=== PATIENT | female | born 1975 | race Caucasian/White ===

== ENCOUNTER 2017-12-17 05:56 | Inpatient (IN) | payer MEDICAID ==
[~2017-12-17 05:56] MED LIST: Ropivacaine 58 ML, Dexamethasone 8 MG, EPINEPHrine 0.4 MG, Sodium Chloride 0.9% 19.6 ML NERVRT SCH
[2017-12-17] MEDS ORDERED: Celecoxib 200 MG Cap PO ONE (06:00)
[2017-12-17] MEDS ORDERED: Acetaminophen 500 MG Tab PO ONE (06:00)
[2017-12-17] MEDS ORDERED: Gabapentin 300 MG Cap PO ONE (06:00)
[2017-12-17] MEDS ORDERED: Scopolamine 1.5 MG Transdermal Patch TOP SCH (06:05)
[2017-12-17] MEDS ORDERED: Albuterol/Ipratropium 3.0-0.5 MG/3 ML Neb Soln NEB ONE (06:30)
[2017-12-17] MEDS ORDERED: Dextrose 5%-Lactated Ringers 1,000 ML IV SCH (06:30)
[2017-12-17] MEDS ORDERED: cefOXitin 2 GM Vial ONE (06:40)
[2017-12-17] MEDS ORDERED: fentaNYL 250 MCG/5 ML SDV ONE ×4 (06:59→09:41)
[2017-12-17] MEDS ORDERED: Lactated Ringers 1,000 ML ONE (06:59)
[2017-12-17] MEDS ORDERED: Propofol 200 MG/20 ML SDV ONE (07:00)
[2017-12-17] MEDS ORDERED: Rocuronium 50 MG/5 ML Vial ONE (07:00)
[2017-12-17] MEDS ORDERED: Neostigmine Methylsulfate 1 MG/ML 5 ML Syringe ONE (07:00)
[2017-12-17] MEDS ORDERED: Dexamethasone 4 MG/ML SDV ONE (07:00)
[2017-12-17] MEDS ORDERED: Glycopyrrolate 0.2 MG/ML 5 ML MDV ONE (07:00)
[2017-12-17] MEDS ORDERED: Succinylcholine 200 MG/10 ML MDV ONE (07:00)
[2017-12-17] MEDS ORDERED: Ondansetron 4 MG/2 ML SDV ONE (07:00)
[2017-12-17] MEDS ORDERED: cefOXitin 2 GM in Sodium Chloride 0.9% 100 ML IV ONE (07:45)
[2017-12-17] MEDS ORDERED: Ketamine 500 MG/5 ML MDV IV ONE (08:00)
[2017-12-17] MEDS ORDERED: Lidocaine 0.4%/D5W 2 GM/500 ML BAG IV SCH (08:00)
[2017-12-17] MEDS ORDERED: Lidocaine 2% 100 MG/5 ML Syringe IVPUSH ONE (08:00)
[2017-12-17] MEDS: cefOXitin 2 GM in Sodium Chloride 0.9% 50 ML IV ONE ×2 (08:56→11:23)
[2017-12-17] MEDS ORDERED: Labetalol 20 MG/4 ML Syringe ONE (09:19)
[2017-12-17] MEDS ORDERED: hydrOXYzine HCl 100 MG/2 ML SDV IM ONE (10:18)
[2017-12-17] MEDS ORDERED: Labetalol 20 MG/4 ML Syringe IVPUSH ONE (10:39)
[2017-12-17] MEDS ORDERED: Insulin Aspart 100 Units/ML 3 ML Pen SUBCUT ONE (11:00)
[2017-12-17] MEDS ORDERED: Glucagon,Human Recombinant 1 MG Vial IM PRN (13:00)
[2017-12-17] MEDS ORDERED: Insulin Aspart 100 Units/ML 3 ML Pen SUBCUT PRN (13:00)
[2017-12-17] MEDS ORDERED: diphenhydrAMINE 50 MG/ML SDV IVPUSH PRN (13:00)
[2017-12-17] MEDS ORDERED: Albuterol/Ipratropium 3.0-0.5 MG/3 ML Neb Soln INH PRN (13:00)
[2017-12-17] MEDS ORDERED: 50% Dextrose in Water 50 ML Syringe IVPUSH PRN (13:00)
[2017-12-17] MEDS: Pantoprazole 40 MG Vial IVPUSH SCH (13:32)
[2017-12-17] MEDS: Acetaminophen Soln 650 MG/20.3 ML UD Cup PO SCH ×2 (14:06→20:32)
[2017-12-17] MEDS: cefOXitin 2 GM in Sodium Chloride 0.9% 50 ML IV SCH ×2 (14:07→20:34)
[2017-12-17] MEDS: ARIPiprazole 10 MG Tab PO SCH (14:07)
[2017-12-17] MEDS: Gabapentin 250 MG/5 ML Solution ML 470 ML Bottle PO SCH ×2 (14:07→20:34)
[2017-12-17] MEDS: Albuterol/Ipratropium 3.0-0.5 MG/3 ML Neb Soln INH SCH ×2 (14:50→20:34)
[2017-12-17] MEDS ORDERED: MVI, Adult with Vitamin K 10 ML, Thiamine 100 MG, Chromium/Copper/Mang/Selen/Zn 1 ML in... IV SCH ×4 (16:00)
[2017-12-17] MEDS ORDERED: Coagulation Factor VIIa Recombinant (per MCG) 2 MG Vial IVPUSH ONE ×2 (18:45→19:54)
[2017-12-17] MEDS: Ondansetron 4 MG/2 ML SDV IVPUSH PRN (19:21)
[2017-12-17] MEDS ORDERED: Heparin Sodium 5,000 Units/ML Vial SUBCUT SCH (20:00)
[2017-12-17] MEDS: hydrOXYzine HCl 100 MG/2 ML SDV IM PRN (20:05)
[2017-12-17] MEDS: Metoclopramide 10 MG/2 ML SDV IVPUSH PRN (20:05)
[2017-12-17] MEDS ORDERED: LORazepam 2 MG/ML SDV IVPUSH PRN (20:59)
[2017-12-17] MEDS: Dextrose 5%-Lactated Ringers 1,000 ML IV SCH (23:56)
[2017-12-18] MEDS: Labetalol 20 MG/4 ML Syringe IVPUSH PRN ×5 (00:45→19:31)
[2017-12-18] MEDS: Ondansetron 4 MG/2 ML SDV IVPUSH PRN ×4 (01:02→20:48)
[2017-12-18] MEDS: Acetaminophen Soln 650 MG/20.3 ML UD Cup PO SCH ×4 (02:22→19:51)
[2017-12-18] MEDS: cefOXitin 2 GM in Sodium Chloride 0.9% 50 ML IV SCH ×2 (02:22→08:02)
[2017-12-18] MEDS: Metoclopramide 10 MG/2 ML SDV IVPUSH PRN (04:04)
[2017-12-18] MEDS ORDERED: Iohexol 647 MG/ML 50 ML SDV PO SCH (05:45)
[2017-12-18] MEDS: Dextrose 5%-Lactated Ringers 1,000 ML IV SCH ×2 (05:50→14:38)
[2017-12-18] MEDS: Albuterol/Ipratropium 3.0-0.5 MG/3 ML Neb Soln INH SCH ×4 (07:26→20:48)
[2017-12-18] MEDS: Gabapentin 250 MG/5 ML Solution ML 470 ML Bottle PO SCH ×3 (08:02→20:48)
[2017-12-18] MEDS: Celecoxib 200 MG Cap PO SCH (08:05)
[2017-12-18] MEDS: ARIPiprazole 10 MG Tab PO SCH (08:07)
[2017-12-18] MEDS: SCOPOLAMINE PATCH CHECK TOP SCH (08:08)
[2017-12-18] MEDS ORDERED: Cyclobenzaprine 10 MG Tab PO PRN (08:38)
[2017-12-18] MEDS: Venlafaxine 75 MG Cap.ER PO SCH (10:29)
[2017-12-18] MEDS: tiZANidine 2 MG Tab PO SCH (10:29)
[2017-12-18] MEDS: busPIRone 10 MG Tab PO SCH (10:29)
[2017-12-18] MEDS: Pantoprazole 40 MG Vial IVPUSH SCH (13:38)
[2017-12-18] MEDS ORDERED: MVI, Adult with Vitamin K 10 ML, Thiamine 100 MG, Chromium/Copper/Mang/Selen/Zn 1 ML in... IV SCH ×4 (16:00)
[2017-12-19] MEDS: Acetaminophen Soln 650 MG/20.3 ML UD Cup PO SCH ×4 (01:25→19:03)
[2017-12-19] MEDS: Dextrose 5%-Lactated Ringers 1,000 ML IV SCH (03:09)
[2017-12-19] MEDS: Labetalol 20 MG/4 ML Syringe IVPUSH PRN (03:57)
[2017-12-19] MEDS: Albuterol/Ipratropium 3.0-0.5 MG/3 ML Neb Soln INH SCH ×4 (07:21→20:39)
[2017-12-19] MEDS ORDERED: Potassium Chloride 10% 20 MEQ/15 ML Soln 15 ML UD Cup PO SCH (08:00)
[2017-12-19] MEDS ORDERED: Magnesium Hydroxide 400 MG/5 ML Susp 30 ML Cup PO PRN (08:00)
[2017-12-19] MEDS: Celecoxib 200 MG Cap PO SCH (08:03)
[2017-12-19] MEDS: Furosemide 20 MG/2 ML VIAL IV SCH ×2 (08:08→16:15)
[2017-12-19] MEDS: SCOPOLAMINE PATCH CHECK TOP SCH (08:11)
[2017-12-19] MEDS: busPIRone 10 MG Tab PO SCH (08:12)
[2017-12-19] MEDS: ARIPiprazole 10 MG Tab PO SCH (08:12)
[2017-12-19] MEDS: Venlafaxine 75 MG Cap.ER PO SCH (08:13)
[2017-12-19] MEDS: tiZANidine 2 MG Tab PO SCH (08:14)
[2017-12-19] MEDS: Gabapentin 250 MG/5 ML Solution ML 470 ML Bottle PO SCH (08:20)
[2017-12-19] MEDS ORDERED: Cyanocobalamin (Vitamin B12) 1,000 MCG/ML SDV IM ONE (09:00)
[2017-12-19] MEDS ORDERED: Pantoprazole 40 MG Delayed-Release Granules 1 Packet PO SCH (11:30)
[2017-12-19] MEDS: traMADol 50 MG Tab PO PRN ×3 (14:06→23:40)
[2017-12-19] MEDS: hydrOXYzine HCl 100 MG/2 ML SDV IM PRN (16:15)
[2017-12-19] MEDS ORDERED: Potassium Chloride 20 MEQ Tab.ER PO ONE (17:00)
[2017-12-19] MEDS: Ondansetron 4 MG/2 ML SDV IVPUSH PRN (18:06)
[2017-12-20] MEDS: Acetaminophen Soln 650 MG/20.3 ML UD Cup PO SCH ×2 (00:04→07:44)
[2017-12-20] MEDS: Albuterol/Ipratropium 3.0-0.5 MG/3 ML Neb Soln INH SCH (07:37)
[2017-12-20] MEDS: Celecoxib 200 MG Cap PO SCH (07:44)
[2017-12-20] MEDS: traMADol 50 MG Tab PO PRN (07:44)
[2017-12-20] MEDS: Venlafaxine 75 MG Cap.ER PO SCH (08:06)
[2017-12-20] MEDS: busPIRone 10 MG Tab PO SCH (08:07)
[2017-12-20] MEDS: ARIPiprazole 10 MG Tab PO SCH (08:08)
[2017-12-20] MEDS: tiZANidine 2 MG Tab PO SCH (08:08)
[2017-12-20] MEDS ORDERED: Magnesium Hydroxide 400 MG/5 ML Susp 30 ML Cup PO ONE (08:30)
--- NOTE | 2017-12-20 09:02 | CR ---
UGI [facility]UB HISTORY: Natalie-en-Y COMPARISON: None FINDINGS: Surgical drain present at the operative site. Gastric bypass anatomy. No extravasation or o bstruction seen.
--- NOTE | 2017-12-20 14:26 | PN ---
DATE OF SERVICE: 12/19/2017 The patient has been afebrile with stable vital signs. In terms of oozing seems to be decreasing. Blood pressure is still quite high and will give her 2 doses of IV Lasix today and some supplementary potassium as well. She will likely be ready for discharge home tomorrow. Gus Ugalde MD /[id number]
--- NOTE | 2017-12-20 17:32 | PN ---
DATE OF SERVICE: 12/18/2017 The patient is postop day 1 from laparoscopic Natalie-en-Y gastric bypass. No major problems were noted overnight other than episode of nausea, that is now cleared. Upper GI x-ray looks good. Urine output has been satisfactory. The pain control otherwise has been satisfactory. We will restart her pertinent oral medications, take her over to step-2 diet, and maximize activity with pulmonary toilet. Gus Ugalde MD /[id number]
--- NOTE | 2017-12-21 11:27 | DISCH ---
ADMISSION DIAGNOSES: 1. Morbid obesity. 2. Body mass index of 43. 3. Anxiety. 4. Prediabetes. DISCHARGE DIAGNOSES: Status post Natalie-en-Y gastric bypass surgery, Conor-Cut needle liver biopsy, repair of paraesophageal diaphragmatic hernia, and excision of mediastinal lipoma for morbid obesity, hepatomegaly, paraesophageal diaphragmatic hernia, and mediastinal lipoma. Surgeon was Gus Ugalde MD, and date of surgery was 12/17/2017. HISTORY: Delfina Baer is a 42-year-old female with longstanding history of morbid obesity and increasing comorbidities. After preoperative evaluation and discussion of possible risks and possible complications, she wished to proceed with surgical procedure. HOSPITAL COURSE: Delfina had her surgery on 12/17/2017. She had no operative complications. On postoperative day #1, she was started on a step-2 gastric bypass diet without cereal. Her upper GI was normal. On postoperative day #2, blood sugars remained to be normal. Pain was controlled and activity was good. On 12/20/2017, she was able to be discharged to home without any complications. PHYSICAL EXAMINATION: GENERAL: Delfina Baer is a 42-year-old female. VITAL SIGNS: Height is 5 feet 7 inches and weight is 274 pounds, BMI is 43. Temperature is 96.5, pulse is 115, respirations are 16, and blood pressure is 173/93. HEENT: Negative. NECK: Supple. HEART: Regular rate and rhythm. LUNGS: Clear. ABDOMEN: Sutures are intact. Leroy-Agee drain will be removed prior to discharge, 4 x 4 over the TAMMY drain site. Abdominal binder is on. EXTREMITIES: Without peripheral edema. DISPOSITION: Discharged to home. CONDITION: Stable and improving. FOLLOWUP APPOINTMENT: Bety Norman PA-C, on 12/31/2017 at 9:[address] [facility]. DISCHARGE MEDICATIONS: New prescriptions of: 1. Tylenol 650 mg oral q.6 hours for two weeks. 2. Celebrex 200 mg oral, #14. 3. Milk of magnesia take one daily, two doses were given for constipation. 4. Zofran ODT 4 mg q.6 hours p.r.n. nausea, #30. 5. Tramadol 50 mg q.4 hours p.r.n. pain, #20. 6. Continue taking Abilify 10 mg oral daily. 7. Clotrimazole one applicator topical as needed. 8. Flexeril 10 mg oral at bedtime. 9. Amerge 2.5 mg oral as needed for headache. 10.Omeprazole 20 mg b.i.d. 11.Venlafaxine ER 75 mg oral daily. 12.BuSpar 10 mg oral three times a day. 13.Tizanidine 2 mg oral daily. Discontinue taking Voltaren, ketorolac, calcium carbonate, vitamin B12, multivitamin, and vitamin B complex. DIET AFTER DISCHARGE: Step-2 gastric bypass diet without cereal, and drink 8 to 10 glasses of water a day. ACTIVITY: As tolerated. No lifting greater than 10 pounds for two weeks. Driving, do not drive for one week. Shower/bathing, may shower. DISCHARGE INSTRUCTIONS: Notify provider if any fever, increased pain, nausea, or vomiting. WOUND INCISION CARE: Keep site clean and dry. Wear abdominal binder for two weeks, and then as tolerated. SPECIAL INSTRUCTIONS: Use incentive spirometer 10 times every hour while awake for two weeks. Check blood sugars in the morning fasting and as needed. Bring results of blood sugars to clinic appointments.
--- NOTE | 2017-12-26 13:51 | OR ---
DATE OF PROCEDURE: 12/17/2017 PREOPERATIVE DIAGNOSIS: Morbid obesity. POSTOPERATIVE DIAGNOSES: 1. Morbid obesity. 2. Marked hepatomegaly. 3. Paraesophageal diaphragmatic hernia. 4. Mediastinal lipoma. OPERATIVE PROCEDURE: 1. Laparoscopic Natalie-en-Y gastric bypass with long limb gastroenterostomy (69793). 2. Conor-Cut needle liver biopsy (59949). 3. Repair of paraesophageal diaphragmatic hernia (16630). 4. Excision of mediastinal lipoma (18671). ANESTHESIA: General. BLISS PRESS OPERATOR: 1. Bety Norman PA-C. 2. JEWEL Naylor. 3. JEWEL Herrmann. INDICATIONS FOR PROCEDURE: This is a 42-year-old presenting with longstanding morbid obesity and increasingly significant comorbidities. After preoperative evaluation and discussion, she wished to proceed with a gastric bypass procedure. Potential risks of procedure including bleeding, infection, leaks from various GI tract closures, and problems with bowel obstruction over time as well as possibility of cardiopulmonary, septic, or hemorrhagic complications leading to were all discussed, and the patient wishes to proceed. DETAILS OF PROCEDURE: The patient was taken to the operating room, and after general endotracheal anesthesia was induced, was placed in a lithotomy position. An orogastric tube was placed, and then the abdomen prepped and draped. At 15 cm inferior, 5 cm left of xiphoid process, transverse incision was made, and the peritoneal cavity entered under direct vision with Optiview trocar inflated to 15 mmHg pressure with CO2. Laparoscope was then reinserted. No underlying trocar insertion site injuries were seen. Following this, bilateral subcostal transverse abdominis plane blocks were placed with direct visualization of the needle in the correct plane and injection of the standard solution bilaterally. Following this, 5 additional trocars were placed across in the mid abdomen, general exploration was undertaken. The patient was noted to have marked hepatomegaly with the liver being grossly fatty infiltrated. Conor-Cut needle biopsies were obtained of left lobe of the liver. Minimal bleeding from biopsy sites was controlled with electrocautery. The omentum was then divided in the midline, up to the level of the transverse colon. This allowed identification of the small bowel to the ligament of Treitz. Small bowel was then traced out 200 cm distal to that point, it was divided transversely with a RADHA stapler. Small bowel was then traced out additional 200 cm where the [id number] enteroenterostomy was accomplished with internal firing of the Endo-RADHA 60 mm stapler. The common opening was then closed transversely with same stapler, angles anastomosed, mesenteric defect approximated with 0 Ethibond stitch along with fibrin sealant. The divided end of the Natalie limb was then from the mesentery for few centimeters, which allowed antecolic positioning of the Natalie limb up to the level of the gastroesophageal junction without tension. The liver was then retracted anteriorly. The patient was noted to have a moderate-sized paraesophageal diaphragmatic hernia with prolapse of the perigastric fat and some fundus of the stomach in a plane anterior to the course of the esophagus. This was reduced during the course of the reduction of the diaphragmatic hernia. Mediastinal lipoma was encountered. This was dissected free and excised and sent for as a separate specimen. The diaphragmatic hernia was then repaired anteriorly with a series of 0 Ethibond sutures reinforced with PTFE pledgets. The gastrointestinal catheter was inflated 15 mL and pulled up snugly against the EG junction. Gastric wall over the apex of the balloon was then marked with electrocautery. Balloon catheter deflated and pulled down from the esophagus. The lesser omental tissue adjacent to the gastric cardia was then incised, allowing dissection behind the stomach at that level. The pouch formation was initiated with a transverse firing of the RADHA stapler at the level of cauterized meg of the gastric pouch and continued with RADHA shila up to and through the angle of His. Upon completion of the pouch, both staple lines were noted to be intact. The anvil of a 25 mm EEA stapler was then attached to Arnett sump-type tube. The latter was brought down through the mouth and taken out small opening in the gastric pouch, allowing the anvil likewise to be pulled down to within the gastric pouch. The divided end of the Natalie limb was then opened, and main body of the EEA stapler passed several centimeters into the lumen of small bowel, brought up the anvil, and united with it thus creating the gastrojejunostomy. Upon removal of the stapler, double donuts of mucosa were noted within it. Small bowel was closed off with a vascular staple line. Gastrojejunostomy was reinforced with some 3-0 Vicryl seromuscular stitch along with fibrin sealant. Leak test was accomplished with injection of 120 mL of air in the gastric pouch while submerged with cefoxitin-containing saline solution. No leaks were identified. One Leroy-Agee drain was taken out through the left lateral trocar site, placed adjacent to the gastrojejunostomy, from there up into the splenic fossa. No further problems were noted. Trocars were removed, and peritoneal cavity deflated. Incisions were closed with 4-0 Vicryl skin stitch which was also used to fix the drain. The patient was taken to the recovery room in satisfactory condition. Physician assistant dean of students, Bety Norman PA-C, played an essential role in assisting in this case, helping to position the patient, retract structures as needed, as well as suturing and cutting sutures as indicated. Her presence improved patient's safety and decreased the operative time. Gus Ugalde MD /[id number]
== END 2017-12-20 10:15 | disposition home or self-care (01) | DRG 621 ==
LOC: JP.MS 05:56 → JP.SDS 05:56 → EDSTATUS 07:30 → JP.2SS 10:40
PROVIDERS: ADMIT Surgery; ATTEND Surgery
PROC: 0D164ZA Bypass Stomach to Jejunum, Percutaneous Endoscopic Approach (ICD-10-PCS; principal; 2017-12-17)
PROC: 0FB24ZX Excision of Left Lobe Liver, Percutaneous Endoscopic Approach, Diagnostic (ICD-10-PCS; 2017-12-17)
PROC: 0BQT4ZZ Repair Diaphragm, Percutaneous Endoscopic Approach (ICD-10-PCS; 2017-12-17)
PROC: 0WBC4ZX Excision of Mediastinum, Percutaneous Endoscopic Approach, Diagnostic (ICD-10-PCS; 2017-12-17)
PROC: 3E0T3BZ Introduction of Anesthetic Agent into Peripheral Nerves and Plexi, Percutaneous Approach (ICD-10-PCS; 2017-12-17)
DX: E66.01 Morbid (severe) obesity due to excess calories (principal); Z68.41 Body mass index [BMI] 40.0-44.9, adult; R16.0 Hepatomegaly, not elsewhere classified; K44.9 Diaphragmatic hernia without obstruction or gangrene; D17.4 Benign lipomatous neoplasm of intrathoracic organs; F41.9 Anxiety disorder, unspecified; R73.03 Prediabetes; K21.9 Gastro-esophageal reflux disease without esophagitis; Z79.899 Other long term (current) drug therapy; Z88.0 Allergy status to penicillin; Z88.8 Allergy status to other drugs, medicaments and biological substances; Z87.891 Personal history of nicotine dependence; K76.0 Fatty (change of) liver, not elsewhere classified
CPT/HCPCS: 36415; 74240; 74240-26; 80053; 81025; 82962; 83036; 83735; 84100; 85025; 86850; 86900; 86901; 88304; 88307; 88313; 94640; 94762; A9270-GY; C9113; J0171; J0330; J0694; J1100; J1940; J2001; J2060; J2405; J2704; J2710; J2765; J2795; J3010; J3410; J3411; J3420; J7030; J7040; J7042; J7050; J7120; J7189; J7620; Q9967

== ENCOUNTER 2019-11-13 13:14 | Inpatient (IN) | payer MEDICAID ==
[2019-11-13] MEDS ORDERED: Iopamidol 612 MG/ML 500 ML Multipack Bottle PO ONE (13:23)
[2019-11-13] MEDS ORDERED: Iopamidol 612 MG/ML 500 ML Multipack Bottle IV ONE (15:00)
[2019-11-13] MEDS ORDERED: Sodium Chloride 0.9% 10 ML Syringe FLUSH ONE (15:00)
--- NOTE | 2019-11-13 16:01 | CT ---
Abdomen Pelvis w Cont CLINICAL HISTORY: Pre and umbilical abdominal pain, postprandial COMPARISON: None. TECHNIQUE: Axial tomographic images are obtained from the dome of the diaphragm to the pubic symphysis with IV contrast enhancement. Oral contrast was used. Auto dosage reduction and iterative reconstruction techniques employed. FINDINGS: The lung bases are clear. There is a 2 x 6 cm right pericardial cyst. The upper dimensions extend off the upper images. The liver shows no mass or biliary dilatation. The gallbladder is mildly distended. There is no stones or wall thickening The spleen has a normal size and shape. Patient has had previous gastric bypass surgery. There is a small hiatal hernia. There is some fluid in the excluded portion. The small intestinal configuration is nonacute. There is some rightward rotation of the mesentery around the SMA. The this appears to cause some impression on the mesenteric vein. There is increased fluid density within the mesenteric fat which may be secondary to some impedance of venous return. There is a small amount of fluid in the cul-de-sac. Uterus has a normal contour. There is a mildly prominent left ovary with what appears to be a ovarian cyst. This should be correlated with ultrasound if clinically relevant. The pancreas has a normal contour. The adrenal glands appear normal bilaterally. The kidneys show no mass or hydronephrosis. There are punctate nonobstructing calculi in both kidneys. The aorta has a normal contour. There is no suspicious retroperitoneal adenopathy. IMPRESSION: Previous gastric bypass There is some rightward rotation of the mesenteric vessels around the SMA with some mesenteric edema. This is suspect for some impedance of the mesenteric venous return. There is no bowel thickening or significant distention Punctate nonobstructing renal calculi bilaterally. Pericardial cyst Prominent left ovary. There is some free fluid in the cul-de-sac. If clinically relevant, this may be correlated with pelvic ultrasound
[2019-11-13] MEDS ORDERED: tiZANidine 2 MG Tab PO PRN ×2 (16:46→17:23)
[2019-11-13] MEDS ORDERED: Acetaminophen 325 MG Tab PO PRN (16:46)
[2019-11-13] MEDS ORDERED: Acetaminophen 650 MG Supp RECTAL PRN (16:47)
[2019-11-13] MEDS: Ondansetron 4 MG/2 ML SDV IVPUSH PRN (17:33)
[2019-11-13] MEDS: HYDROmorphone 0.5 MG/0.5 ML Syringe IVPUSH PRN ×3 (17:34→23:31)
[2019-11-13] MEDS: Dextrose 5%-Lactated Ringers 1,000 ML IV SCH ×2 (17:35→23:30)
[2019-11-13] MEDS: Metoclopramide 10 MG/2 ML SDV IVPUSH SCH ×2 (19:16→23:33)
[2019-11-13] MEDS: Pantoprazole 40 MG Vial IVPUSH SCH (19:16)
[2019-11-14] MEDS: HYDROmorphone 0.5 MG/0.5 ML Syringe IVPUSH PRN (03:27)
[2019-11-14] MEDS: Dextrose 5%-Lactated Ringers 1,000 ML IV SCH ×4 (06:18→21:55)
[2019-11-14] MEDS: Metoclopramide 10 MG/2 ML SDV IVPUSH SCH (06:19)
[2019-11-14] MEDS ORDERED: Lidocaine 1% with EPINEPHrine 1:100,000 50 ML MDV ONE (06:42)
[2019-11-14] MEDS ORDERED: Bupivacaine 0.5% 50 ML MDV ONE (06:42)
[2019-11-14] MEDS ORDERED: Meropenem 500 MG SDV ONE (06:42)
[2019-11-14] MEDS ORDERED: Non-Formulary Medication 1 Each IV ONE ×3 (06:55→07:00)
[2019-11-14] MEDS ORDERED: Ketamine 500 MG/5 ML MDV IV SCH ×3 (07:00→08:00)
[2019-11-14] MEDS ORDERED: Rocuronium 50 MG/5 ML Vial ONE (07:09)
[2019-11-14] MEDS ORDERED: Dexamethasone 4 MG/ML SDV ONE (07:09)
[2019-11-14] MEDS ORDERED: Ondansetron 4 MG/2 ML SDV ONE (07:09)
[2019-11-14] MEDS ORDERED: Neostigmine Methylsulfate 1 MG/ML 5 ML Syringe ONE (07:09)
[2019-11-14] MEDS ORDERED: Propofol 200 MG/20 ML SDV ONE ×2 (07:09→08:22)
[2019-11-14] MEDS ORDERED: Succinylcholine 200 MG/10 ML MDV ONE (07:09)
[2019-11-14] MEDS ORDERED: Glycopyrrolate 0.2 MG/ML 5 ML MDV ONE (07:09)
[2019-11-14] MEDS ORDERED: fentaNYL 250 MCG/5 ML SDV ONE ×2 (07:10→07:47)
[2019-11-14] MEDS ORDERED: cefOXitin 2 GM in Sodium Chloride 0.9% 50 ML IV ONE ×4 (07:30)
[2019-11-14] MEDS ORDERED: Scopolamine 1.5 MG Transdermal Patch ONE (07:33)
[2019-11-14] MEDS ORDERED: Magnesium Sulfate 2 GM in Sodium Chloride 0.9% 100 ML IV SCH (08:00)
[2019-11-14] MEDS ORDERED: Ketamine 50 MG in Sodium Chloride 0.9% 49.5 ML IV SCH (08:00)
[2019-11-14] MEDS ORDERED: Magnesium Sulfate 3.2 GM in Sodium Chloride 0.9% 250 ML IV ONE (08:00)
[2019-11-14] MEDS ORDERED: Sugammadex Sodium 200 MG/2 ML VIAL ONE (08:22)
--- NOTE | 2019-11-14 08:25 | PN ---
DATE OF SERVICE: 11/14/2019 SUBJECTIVE: Delfina has used Dilaudid IV for pain management, which helps her pain in her abdomen. Has been on sips of clear liquids. She is n.p.o. She states she has had nothing to drink since she fell asleep around 10:30. Vital signs have been stable. REVIEW OF SYSTEMS: Remainder of review of systems negative for any pertinent positives and negatives. OBJECTIVE: GENERAL: Delfina Baer is a 44-year-old female. VITAL SIGNS: Height is 5 feet 7.5 inches, weight is 163 pounds. TPR is 96.6, 60, 18, blood pressure 116/58. HEENT: Negative. NECK: Supple. HEART: Regular rate and rhythm. LUNGS: Clear. ABDOMEN: Remains to be tender in all 4 quadrants. Guarding with palpation. EXTREMITIES: Without peripheral edema. ASSESSMENT: Partial small bowel obstruction. PLAN: Scheduled for laparotomy for release of partial small bowel obstruction and possible small bowel resection, general anesthesia, TAP block, magnesium bolus and drip, and ketamine bolus and drip. Cefoxitin 2 g IV on-call to OR. After preoperative evaluation and discussion of possible risks and possible complications, the patient wishes to proceed with surgical procedure. Bety Norman PA-C /[id number]
[2019-11-14] MEDS ORDERED: fentaNYL 100 MCG/2 ML SDV IVPUSH ONE (08:36)
[2019-11-14] MEDS ORDERED: hydrOXYzine HCL 100 MG/2 ML SDV IM ONE (08:36)
[2019-11-14] MEDS ORDERED: Amphetamine/Dextroamphetamine Salts 10 MG Tab PO SCH (09:00)
[2019-11-14] MEDS ORDERED: diphenhydrAMINE 50 MG/ML SDV IVPUSH PRN (09:41)
[2019-11-14] MEDS ORDERED: Acetaminophen 500 MG Tab PO PRN (09:41)
[2019-11-14] MEDS ORDERED: Calcium Gluconate 10% 1 GM/10 ML SDV IVPUSH PRN (09:41)
[2019-11-14] MEDS ORDERED: HYDROmorphone 0.5 MG/0.5 ML Syringe IVPUSH PRN (09:41)
[2019-11-14] MEDS ORDERED: hydrOXYzine HCL 100 MG/2 ML SDV IM PRN (09:41)
[2019-11-14] MEDS ORDERED: Labetalol 20 MG/4 ML Syringe IVPUSH PRN (09:41)
[2019-11-14] MEDS ORDERED: Scopolamine 1.5 MG Transdermal Patch TOP SCH (10:00)
[2019-11-14] MEDS: Celecoxib 200 MG Cap PO SCH ×2 (10:37→21:46)
[2019-11-14] MEDS: oxyCODONE 5 MG Tab PO PRN ×2 (10:37→19:41)
[2019-11-14] MEDS: Escitalopram 20 MG Tab PO SCH (10:40)
[2019-11-14] MEDS: Acetaminophen 500 MG Tab PO SCH ×2 (10:41→17:22)
[2019-11-14] MEDS: HYDROmorphone 1 MG/ML Syringe IV PRN ×4 (11:25→23:49)
[2019-11-14] MEDS: Sodium Ferric Gluconate Cmplex 250 MG in Sodium Chloride 0.9% 100 ML IV SCH (13:37)
[2019-11-14] MEDS: cefOXitin 2 GM in Sodium Chloride 0.9% 50 ML IV SCH ×2 (13:37→20:01)
[2019-11-14] MEDS: Heparin Sodium 5,000 Units/ML Vial SUBCUT SCH (15:42)
[2019-11-14] MEDS ORDERED: MVI, Adult with Vitamin K 10 ML, Thiamine 200 MG, Chromium/Copper/Mang/Selen/Zn 1 ML in... IV SCH ×4 (16:00)
[2019-11-14] MEDS: Pantoprazole 40 MG Vial IVPUSH SCH (17:21)
[2019-11-14] MEDS: Cyclobenzaprine 10 MG Tab PO PRN (23:48)
[2019-11-15] MEDS: oxyCODONE 5 MG Tab PO PRN ×2 (02:56→20:24)
[2019-11-15] MEDS: Acetaminophen 500 MG Tab PO SCH ×3 (02:56→17:01)
[2019-11-15] MEDS: cefOXitin 2 GM in Sodium Chloride 0.9% 50 ML IV SCH (02:58)
[2019-11-15] MEDS: Heparin Sodium 5,000 Units/ML Vial SUBCUT SCH ×2 (03:03→15:00)
[2019-11-15] MEDS ORDERED: Iopamidol 612 MG/ML 50 ML SDV PO STA (03:44)
[2019-11-15] MEDS: Dextrose 5%-Lactated Ringers 1,000 ML IV SCH ×2 (03:50→11:15)
[2019-11-15] MEDS: Amphetamine/Dextroamphetamine Salts 10 MG Tab PO SCH ×2 (06:03→14:04)
[2019-11-15] MEDS: Ondansetron 4 MG/2 ML SDV IVPUSH PRN ×2 (06:51→11:13)
[2019-11-15] MEDS: HYDROmorphone 1 MG/ML Syringe IV PRN ×3 (06:55→14:22)
[2019-11-15] MEDS: Escitalopram 20 MG Tab PO SCH (08:06)
[2019-11-15] MEDS: Celecoxib 200 MG Cap PO SCH ×2 (08:06→20:23)
[2019-11-15] MEDS: Bisacodyl 5 MG Tab PO SCH ×2 (08:43→20:24)
[2019-11-15] MEDS: Docusate Sodium 100 MG Cap PO SCH ×2 (08:43→20:24)
--- NOTE | 2019-11-15 08:56 | PN ---
DATE OF SERVICE: 11/15/2019 SUBJECTIVE: Delfina is postoperative day #1. Her upper GI was normal. Her pain is managed. She has been up walking in the burden. She received 1 iron infusion, will be getting her 2nd today. She had been feeling good until right before we walked in this morning for rounds and she was nauseated at that movement. She was given medication for nausea, and by the time I went in there the second time she was feeling much better. She has no other concerns or questions. REVIEW OF SYSTEMS: Remainder of review of systems negative for any pertinent positives and negatives. OBJECTIVE: GENERAL: Delfina is a pleasant 44-year-old female. VITAL SIGNS: TPR at 0700, 95.8; 65, 16, blood pressure 144/78. HEENT: Negative. NECK: Supple. HEART: Regular rate and rhythm. LUNGS: Clear. ABDOMEN: Dressings dry and intact. Abdominal binder is on. EXTREMITIES: Without peripheral edema. ASSESSMENT: Exploratory laparotomy with: 1. Reduction of small bowel volvulus and closure of internal hernia. 2. Small bowel resection. 3. Secondary enterostomy to restore Natalie-en-Y small bowel anatomy. 4. Excision of elongated peritoneal lesion, scarred omentum to retroperitoneum. 5. Excision of cystic peritoneal lesion on omentum. 6. Placement of Interceed mesh. POSTOPERATIVE DIAGNOSES: 1. Partial small bowel obstruction secondary to volvulus. 2. Elongated peritoneal adhesion, 12 cm. 3. Stricture at point of Natalei limb enterotomy, jejunojejunostomy. 4. Peritoneal cyst on surface of omentum. 5. Date of surgery: 11/14/2019. Surgeon: Gus Ugalde MD. PLAN: 1. May shower. 2. Step 2 gastric bypass diet with no cereal. 3. Decrease IV to 100 mL per hour. 4. Dulcolax 10 mg b.i.d. orally until the patient has a bowel movement, then discontinue. 5. Colace 100 mg p.o. b.i.d. 6. Zofran ODT 4 mg sublingual every 4 hours p.r.n. nausea. 7. Good pulmonary toilet. 8. We will evaluate p.r.n. or in a.m. Bety Norman PA-C /[id number]
[2019-11-15] MEDS: Metoclopramide 10 MG/2 ML SDV IVPUSH PRN (09:19)
[2019-11-15] MEDS: SCOPOLAMINE PATCH CHECK TOP SCH (09:21)
--- NOTE | 2019-11-15 10:58 | CR ---
UGI [facility] HISTORY: Postbariatric surgery FINDINGS: Patient swallowed water-soluble contrast. Upright views of the abdomen show no evidence of extravasation or obstruction. IMPRESSION: Status post bariatric surgery No extravasation or obstruction seen
[2019-11-15] MEDS: Sodium Ferric Gluconate Cmplex 250 MG in Sodium Chloride 0.9% 100 ML IV SCH (12:40)
[2019-11-15] MEDS: MVI, Adult with Vitamin K 10 ML, Thiamine 200 MG, Chromium/Copper/Mang/Selen/Zn 1 ML in... IV SCH ×4 (15:00)
[2019-11-15] MEDS: Pantoprazole 40 MG Delayed-Release Granules 1 Packet PO SCH (17:00)
[2019-11-15] MEDS: Cyclobenzaprine 10 MG Tab PO PRN (20:24)
[2019-11-16] MEDS: HYDROmorphone 1 MG/ML Syringe IV PRN ×2 (00:09→09:20)
[2019-11-16] MEDS: Ondansetron 4 MG/2 ML SDV IVPUSH PRN ×2 (00:10→04:14)
[2019-11-16] MEDS: Dextrose 5%-Lactated Ringers 1,000 ML IV SCH ×2 (01:02→11:14)
[2019-11-16] MEDS: Acetaminophen 500 MG Tab PO SCH ×3 (04:03→18:30)
[2019-11-16] MEDS: Metoclopramide 10 MG/2 ML SDV IVPUSH PRN (04:06)
[2019-11-16] MEDS: Heparin Sodium 5,000 Units/ML Vial SUBCUT SCH ×2 (04:24→16:01)
[2019-11-16] MEDS: Amphetamine/Dextroamphetamine Salts 10 MG Tab PO SCH ×2 (08:05→11:25)
[2019-11-16] MEDS ORDERED: Acetaminophen 1,000 MG in Premix Bag 1 BAG IV ONE (09:00)
[2019-11-16] MEDS ORDERED: Cyanocobalamin (Vitamin B12) 1,000 MCG/ML SDV IM ONE (09:00)
[2019-11-16] MEDS: Meclizine 25 MG Tab PO SCH ×3 (09:11→20:06)
[2019-11-16] MEDS: Metoclopramide 10 MG/2 ML SDV IVPUSH SCH ×3 (09:11→20:06)
[2019-11-16] MEDS: Celecoxib 200 MG Cap PO SCH ×2 (09:24→20:06)
[2019-11-16] MEDS: Escitalopram 20 MG Tab PO SCH (09:24)
[2019-11-16] MEDS: SCOPOLAMINE PATCH CHECK TOP SCH (09:25)
--- NOTE | 2019-11-16 09:59 | PN ---
DATE OF SERVICE: 11/16/2019 SUBJECTIVE: Delfina remains to be extremely nauseated. She is having lot of dry heaves, only able to take in sips of fluid at a time. She reports nausea is mainly associated with movement. She has a scopolamine patch on. Getting scheduled Reglan and p.r.n. Zofran. REVIEW OF SYSTEMS: Remainder of review of systems negative for any pertinent positives and negatives. OBJECTIVE: GENERAL: Delfina is a pleasant 44-year-old female. VITAL SIGNS: TPR at 07:51; 96.1; 68; 18; blood pressure 151/82. HEENT: Negative. NECK: Supple. HEART: Regular rate and rhythm. LUNGS: Clear. ABDOMEN: Dressings dry and intact. Abdominal binder is on. EXTREMITIES: Without peripheral edema. ASSESSMENT: Exploratory laparotomy with: 1. Reduction of small bowel volvulus and closure of internal hernia. 2. Small bowel resection. 3. Secondary enterostomy to restore Natalie-en-Y small bowel anatomy. 4. Excision of elongated peritoneal lesion scarred omentum to retroperitoneum. 5. Excision of cystic peritoneal lesion on omentum. 6. Placement of Interceed mesh. POSTOPERATIVE DIAGNOSES: 1. Partial small bowel obstruction secondary to volvulus. 2. Elongated peritoneal adhesion, 12 cm. 3. Stricture at point of Natalie limb, enterotomy, jejunojejunostomy. 4. Peritoneal cyst on surface of omentum. 5. Date of surgery: 11/14/2019. Surgeon: Gus Ugalde MD. PLAN: 1. Zofran 4 mg IV, 20 minutes before ambulation. 2. Meclizine 25 mg scheduled q.6 hours p.o. 3. No regular Gatorade. The patient thinks that the sugar makes her more nauseated and she is concerned . 4. 1 g IV Tylenol 1 time given to catch up on pain control. The patient is unable to take any oral medication and she is questioning if the IV Dilaudid is making her more nauseated. 5. We will evaluate p.r.n. or in a.m. Bety Norman PA-C /[id number]
[2019-11-16] MEDS: oxyCODONE 5 MG Tab PO PRN (13:08)
[2019-11-16] MEDS: MVI, Adult with Vitamin K 10 ML, Thiamine 200 MG, Chromium/Copper/Mang/Selen/Zn 1 ML in... IV SCH ×4 (16:02)
[2019-11-16] MEDS: Pantoprazole 40 MG Delayed-Release Granules 1 Packet PO SCH (16:02)
[2019-11-17] MEDS: Dextrose 5%-Lactated Ringers 1,000 ML IV SCH (02:17)
[2019-11-17] MEDS: Acetaminophen 500 MG Tab PO SCH ×3 (02:18→17:12)
[2019-11-17] MEDS: Meclizine 25 MG Tab PO SCH ×4 (02:18→20:15)
[2019-11-17] MEDS: Metoclopramide 10 MG/2 ML SDV IVPUSH SCH (02:19)
[2019-11-17] MEDS: Heparin Sodium 5,000 Units/ML Vial SUBCUT SCH ×2 (03:44→17:11)
[2019-11-17] MEDS: HYDROmorphone 1 MG/ML Syringe IV PRN (03:47)
[2019-11-17] MEDS: Ondansetron 4 MG Tab.DIS PO PRN ×3 (03:47→14:19)
[2019-11-17] MEDS: Escitalopram 20 MG Tab PO SCH (08:13)
[2019-11-17] MEDS: Celecoxib 200 MG Cap PO SCH ×2 (08:13→20:15)
[2019-11-17] MEDS: Amphetamine/Dextroamphetamine Salts 10 MG Tab PO SCH ×2 (09:17→14:00)
[2019-11-17] MEDS: Docusate Sodium 100 MG Cap PO SCH ×2 (09:18→20:15)
[2019-11-17] MEDS: Bisacodyl 5 MG Tab PO SCH ×2 (09:18→20:15)
[2019-11-17] MEDS: HYDROmorphone 2 MG Tab PO PRN ×2 (09:23→15:17)
[2019-11-17] MEDS: Metoclopramide 10 MG Tab PO SCH ×3 (10:44→20:15)
--- NOTE | 2019-11-17 11:36 | PN ---
DATE OF SERVICE: 11/17/2019 SUBJECTIVE: Delfina did well after starting the IV Reglan scheduled. She remains to have a headache, but states the only thing that helps her headache is to get Botox injection. She is having gas pains, passing flatus, has not had a bowel movement. REVIEW OF SYSTEMS: Remainder of the review of systems negative for any pertinent positives and negatives. OBJECTIVE: GENERAL: Delfina Baer is a 44-year-old female. She is alert and orientated, feeling much better today. VITAL SIGNS: TPR at 0717 hours: 97.1, 70, 16, blood pressure 144/87. HEENT: Negative. NECK: Supple. HEART: Regular rate and rhythm. LUNGS: Clear. ABDOMEN: Soft. Minimally tender. Dressings dry and intact. EXTREMITIES: Without peripheral edema. ASSESSMENT: Exploratory laparotomy with: 1. Reduction of small bowel volvulus and closure of internal hernia. 2. Small bowel resection. 3. Secondary enterotomy to restore Natalie-en-Y small bowel anatomy. 4. Excision of elongated peritoneal lesion, scarred omentum to retroperitoneum. 5. Excision of cystic peritoneal lesion of the omentum. 6. Placement of Interceed mesh. POSTOPERATIVE DIAGNOSES: 1. Partial small bowel obstruction secondary to volvulus. 2. Elongated peritoneal adhesion, 12 cm. 3. Stricture at point of Natalie limb, enterotomy, jejunostomy. 4. Peritoneal cyst on surface of omentum. 5. Date of surgery 11/14/2019. Surgeon: Gus Ugalde MD. PLAN: 1. Dulcolax 10 mg p.o. b.i.d. until the patient has bowel movement. 2. Colace 100 mg p.o. b.i.d. 3. Dilaudid 2 to 4 mg every 4 hours p.r.n. pain. 4. Discontinue IV Reglan. 5. Reglan 10 mg p.o. q.i.d. and at bedtime scheduled. 6. Convert IV to saline lock. 7. Discontinue IV Benadryl, Dilaudid, and IV Reglan. 8. Discontinue continuous pulse oximetry. 9. Continue good pulmonary toilet. 10.We will evaluate p.r.n. or in a.m. Bety Norman PA-C /[id number]
[2019-11-17] MEDS: Pantoprazole 40 MG Delayed-Release Granules 1 Packet PO SCH (17:12)
[2019-11-18] MEDS: Meclizine 25 MG Tab PO SCH ×2 (03:05→08:00)
[2019-11-18] MEDS: Acetaminophen 500 MG Tab PO SCH (03:05)
[2019-11-18] MEDS: Heparin Sodium 5,000 Units/ML Vial SUBCUT SCH (03:06)
[2019-11-18] MEDS: Cyclobenzaprine 10 MG Tab PO PRN (03:10)
[2019-11-18] MEDS: Amphetamine/Dextroamphetamine Salts 10 MG Tab PO SCH (06:10)
[2019-11-18] MEDS: Metoclopramide 10 MG Tab PO SCH (07:59)
[2019-11-18] MEDS: Docusate Sodium 100 MG Cap PO SCH (08:00)
[2019-11-18] MEDS: Escitalopram 20 MG Tab PO SCH (08:00)
[2019-11-18] MEDS: Celecoxib 200 MG Cap PO SCH (08:00)
[2019-11-18] MEDS: Bisacodyl 5 MG Tab PO SCH (08:00)
[2019-11-18] MEDS: HYDROmorphone 2 MG Tab PO PRN (09:19)
--- NOTE | 2019-11-18 10:20 | DISCH ---
ADMISSION DIAGNOSES: 1. Generalized postprandial abdominal pain. 2. Constipation. 3. Status post Natalie-en-Y gastric bypass surgery. 4. Unspecified surgical malabsorption. 5. B12 deficiency. 6. Vitamin B complex deficiency. 7. Vitamin D deficiency. 8. Anxiety, depression. 9. Asthma. 10.Hepatomegaly. 11.History of degenerative disk disease. DISCHARGE DIAGNOSES: Exploratory laparotomy with: 1. Reduction of small bowel volvulus and closure of internal hernia. 2. Small bowel resection. 3. Secondary enterostomy to restore Natalie-en-Y small bowel anatomy. 4. Excision of elongated peritoneal lesions scarred omentum to retroperitoneum. 5. Excision of cystic peritoneal lesion on omentum. 6. Placement of Interceed mesh. POSTOPERATIVE DIAGNOSES: 1. Partial small bowel obstruction secondary to volvulus. 2. Elongated peritoneal adhesion, 12 cm. 3. Stricture at point of Natalie limb enterotomy, jejunojejunostomy. 4. Peritoneal cyst on surfaces of omentum. 5. Date of surgery: 11/14/2019. Surgeon: Gus Ugalde MD. HOSPITAL COURSE: After preoperative evaluation, discussion of possible risks and possible complications, Delfina wished to proceed with surgical procedure. Surgery was on 11/14/2019. No operative complications. On postoperative day #1, she was started on step 2 gastric bypass diet with no cereal. IV was decreased and started on bowel stimulation. She continued with extreme nausea. Oral intake was decreased. On 11/16/2019, Reglan was administered 10 mg q.6 hours scheduled. Zofran was given 20 minutes before ambulation. She was started on meclizine 25 mg scheduled every 6 hours and the nausea and dry heaving ceased. On 11/17/2019, started on bowel stimulation, BULK PLANT OPERATOR was discontinued and started on oral Reglan as well as oral Dilaudid. On 11/18/2019, she was able to be discharged to home. No nausea. Passing flatus but has not had a bowel movement yet. Oral intake adequate. Vital signs have been stable. Able to be discharged to home without any complications. PHYSICAL EXAMINATION: GENERAL: Delfina is a pleasant 44-year-old female. VITAL SIGNS: Height is 5 feet 7.32 inches, weight is 163 pounds. TPR at 07:08; 97.2; 86; 16; blood pressure 126/82. HEENT: Negative. NECK: Supple. HEART: Regular rate and rhythm. LUNGS: Clear. ABDOMEN: Stapled incision looks good. Abdominal binder is on. EXTREMITIES: Without peripheral edema. DISPOSITION: Discharged to home. CONDITION: Stable and improving. FOLLOWUP APPOINTMENT: Bety Norman PA-C, at [facility] on 11/27/2019 at 9 a.m. NEW PRESCRIPTIONS: 1. Tylenol Extra Strength 1000 mg q.8 hours. 2. Dulcolax tablets 10 mg oral b.i.d. for 30 days. May stop when you have a bowel movement. 3. Colace 100 mg oral b.i.d. #60. 4. Dilaudid 2 mg q.6 hours p.r.n. severe pain, #28. 5. Zofran 4 mg oral q.4 hours p.r.n. nausea, #30. 6. To resume home medications of: a. Adderall 20 mg twice daily. b. Lexapro 20 mg oral daily. c. Zanaflex/tizanidine 2 mg oral 3 times a day p.r.n. spasms. 7. She was instructed not to take her vitamins or supplements until after her 1st postop appointment. DIET: Step 2 gastric bypass diet with no cereal for 2 weeks. ACTIVITY: No lifting over 10 pounds for 6 weeks. OTHER ACTIVITY: Walk 6 times daily inside your home. Driving: Do not drive for 1 week or while on pain medication. Shower/bathing: May shower. DISCHARGE INSTRUCTIONS: Notify provider if any fever, pain, nausea, or vomiting. Wound incision care; keep site clean and dry. Wear abdominal binder for 6 weeks and then as tolerated. SPECIAL INSTRUCTIONS: Use incentive spirometer 10 times every hour while awake.
--- NOTE | 2019-11-22 13:35 | OR ---
DATE OF PROCEDURE: 11/14/2019 SURGEON: Gus Ugalde MD PREOPERATIVE DIAGNOSIS: Partial small bowel obstruction. POSTOPERATIVE DIAGNOSES: 1. Partial small bowel obstruction secondary to volvulus and elongated peritoneal adhesions (12 cm). 2. Stricture at point of Natalie limb entering jejunojejunostomy. 3. Peritoneal cyst on surface of omentum. OPERATIVE PROCEDURES: Exploratory laparotomy with lysis of adhesions and, 1. Reduction of small bowel volvulus and closure of internal hernia (23608). 2. Small bowel resection (32286). 3. Secondary enteroenterostomy to restore Natalie-en-Y small bowel anatomy (30374). 4. Excision of elongated peritoneal adhesions along with some attached omentum (25550). 5. Excision of cystic peritoneal lesion on omentum (91554). 6. Placement of Interceed mesh to limit recurrent adhesion formation between the pelvic and abdominal mendes and underlying viscera (64900). ANESTHESIA: General. MILITARY SOURCE OPERATIONS SPECIALIST: Bety Norman PA-C INDICATIONS FOR PROCEDURE: This is a 44-year-old bariatric surgery patient presenting with a clinical picture of partial small bowel obstruction. The plan is to proceed with exploratory laparotomy with lysis of adhesions and possible bowel resection and other procedures as indicated. Potential risks including bleeding, infection, leaks from various GI tract closures, problems with obstruction recurring over time, as well as the possibility of cardiopulmonary, septic, or hemorrhagic complications leading to were discussed, and the patient wishes to proceed. DETAILS OF PROCEDURE: The patient was taken to the operating room and placed in a supine position. After general endotracheal anesthesia was induced, a Jackson catheter was inserted, and the abdomen prepped and draped. A midline incision from the umbilicus roughly a handsbreadth upward toward the xiphoid was made, carried down through the full-thickness abdominal wall. Upon entering the peritoneal cavity, some omental adhesions were taken down between the abdomen and anterior abdominal wall and general exploration was undertaken. The patient was noted to have 2 primary causes for the partial small bowel obstruction. One was an area of focal volvulus between the common limb and biliopancreatic limb passing beneath the leaves of the jejunojejunostomy. These were reduced and that defect subsequently closed with 2-0 silk stitch. The patient also had a large elongated peritoneal nodular lesion extending from the anterior abdominal wall, down in toward the pelvis. Some of the bowel in that area was looped around that enough that upon its reduction, there was a small crease in the bowel, latter of which was not significant enough to require resection and that lesion which measured around 12 cm along with some associated omentum was then excised and sent for histologic evaluation. The patient was also noted to have some narrowing at the point where the Natalie limb entered the jejunojejunostomy from distortion of that anastomosis chronically. Given this, the bowel at the junction of the Natalie limb and the jejunojejunostomy was divided as were the components of the jejunojejunostomy, common limb and biliopancreatic limb as they entered anastomosis. These were all debrided with RADHA staplers as was the underlying mesenteric division, and the specimen delivered from the field. GI tract continuity was initiated with initially by anastomosis between the end of the biliopancreatic limb and what had been the beginning of the common limb with internal firing of the Endo-RADHA 60 mm stapler. Common opening was closed transversely and angles of anastomosis were reinforced with some 3-0 Vicryl stitch and the mesenteric defect with a 2-0 silk stitch. GI tract continuity was then accomplished with a secondary anastomosis between the lumen and the small bowel roughly 20 cm distal from the first anastomosis. This was done with the same sequence of shila and closure of the mesenteric defect was once again with a 2-0 silk stitch to provide some permanency. One additional finding was that of a small cystic lesion on the peritoneal surface of the omentum. This was around 1.5 to 2 cm and it was excised using a stapler, removing some of the omentum along with it and sent for histologic evaluation. At this point, no further problems were noted. Bilateral transversus abdominis plane blocks were placed, and the fascial incision was anesthetized with 1% lidocaine mixed with Marcaine. The abdomen was irrigated with antibiotic-containing saline solution. To limit recurrent adhesion formation, Interceed mesh was placed underneath the incision and from there down toward the pelvis to displace those surfaces of underlying viscera. Midline fascia was then approximated with #2 Vicryl stitch, subcutaneous tissue with 2 layers of 3-0 and 4-0 Vicryl stitch deep, and shila for the skin. Dressing was applied. The patient was taken to the recovery room in satisfactory condition. Physician dyer assistant, Bety Norman, played an essential role in assisting in this case, helping to position the patient, retract structures as needed, as well as suturing and cutting sutures when indicated. Her presence improved patient safety and decreased the operative time. Gus Ugalde MD /[id number]
== END 2019-11-18 09:30 | disposition home or self-care (01) | DRG 326 ==
LOC: JP.CT 13:14 → JP.2SS 16:22 → JP.MS 16:33
PROVIDERS: ADMIT Surgery; ATTEND Surgery
PROC: 0D160ZA Bypass Stomach to Jejunum, Open Approach (ICD-10-PCS; principal; 2019-11-14)
PROC: 0DS80ZZ Reposition Small Intestine, Open Approach (ICD-10-PCS; 2019-11-14)
PROC: 0DB80ZZ Excision of Small Intestine, Open Approach (ICD-10-PCS; 2019-11-14)
PROC: 0DBU0ZZ Excision of Omentum, Open Approach (ICD-10-PCS; 2019-11-14)
PROC: 0DBW0ZZ Excision of Peritoneum, Open Approach (ICD-10-PCS; 2019-11-14)
PROC: 3E0M05Z Introduction of Adhesion Barrier into Peritoneal Cavity, Open Approach (ICD-10-PCS; 2019-11-14)
DX: K94.10 Enterostomy complication, unspecified (principal); K56.2 Volvulus; K56.51 Intestinal adhesions [bands], with partial obstruction; K91.2 Postsurgical malabsorption, not elsewhere classified; Z68.41 Body mass index [BMI] 40.0-44.9, adult; K59.00 Constipation, unspecified; E66.01 Morbid (severe) obesity due to excess calories; E53.9 Vitamin B deficiency, unspecified; K66.8 Other specified disorders of peritoneum; E53.8 Deficiency of other specified B group vitamins; E55.9 Vitamin D deficiency, unspecified; F41.9 Anxiety disorder, unspecified; F32.9 Major depressive disorder, single episode, unspecified; J45.909 Unspecified asthma, uncomplicated; Z79.899 Other long term (current) drug therapy; Z98.51 Tubal ligation status; Z98.890 Other specified postprocedural states; Z98.84 Bariatric surgery status; Y83.8 Other surgical procedures as the cause of abnormal reaction of the patient, or of later complication, without mention of misadventure at the time of the procedure
CPT/HCPCS: 74177; 74177-26; 74240; 74240-26; 88304; 88307; A9270-GY; C9113; J0131; J0171; J0330; J0694; J1100; J1170; J1644; J2185; J2405; J2704; J2710; J2765; J2795; J2916; J3010; J3410; J3411; J3420; J3475; J3490; J7050; J7121; Q9967

== ENCOUNTER 2020-04-11 14:16 | Inpatient (IN) | payer MEDICAID ==
[2020-04-11] MEDS ORDERED: Acetaminophen 650 MG Supp RECTAL PRN (14:38)
[2020-04-11] MEDS ORDERED: Acetaminophen 325 MG Tab PO PRN (14:38)
[2020-04-11] MEDS ORDERED: Ondansetron 4 MG/2 ML SDV IVPUSH PRN (14:40)
[2020-04-11] MEDS ORDERED: Lactated Ringers 1,000 ML IV ONE (14:45)
[2020-04-11] MEDS ORDERED: Dextrose 5%-Lactated Ringers 1,000 ML IV SCH (14:45)
[2020-04-11] MEDS ORDERED: Acetaminophen 500 MG Tab PO PRN (15:06)
[2020-04-11] MEDS ORDERED: tiZANidine 2 MG Tab PO PRN (15:06)
--- NOTE | 2020-04-11 15:38 | PCM.HP.2 ---
H&P History of Present Illness - General Date of Service: 04/11/20 Source of Information: Patient History Limitations: Reports: No Limitations - History of Present Illness Initial Comments - Free Text/Narative: Delfina states she has had severe upper bilateral abdominal pain since 04/05/2020. Pain is associated with nausea and vomiting. Wednesday night (04/08/2020) she went to the ED at [place] in [facility]. she started having diarrhea. Reports not able to eat or drink anything. States she feels exactly like she did when she had a bowel obstruction. Tries to drink a little water but it comes right back up. Feels very dehydrated. A CT Scan of Abdomen was done. Impression: No acute abnormality identified in the abdomen or pelvis Postsurgical changes of gastric Bypass Tiny 2 mm nonobstructing calculus in the upper pole the right kidney Onset of Symptoms: Reports: Gradual Symptom Onset Date: 04/05/20 Duration of Symptoms: Reports: Getting Worse, Waxing/Waning Location: Reports: Abdomen Quality: Reports: Pressure, Sharp, Stabbing, Throbbing Improves with: Reports: None Worsens with: Reports: Eating, Movement Context: Reports: Sick Contact Associated Symptoms: Reports: Diaphoresis, Loss of Appetite, Malaise, Nausea/Vomiting, Weakness Abdomen Pain Score (Numeric/FACES): 4 - Related Data Allergies/Adverse Reactions: Allergies Allergy/AdvReac Type Severity Reaction Status Date / Time amoxicillin Allergy Hives Verified 12/17/17 06:25 erythromycin base Allergy Other Verified 12/17/17 06:25 Penicillins Allergy Other Verified 12/17/17 06:25 sulfamethoxazole Allergy Hives Verified 12/17/17 06:25 trimethoprim [From ] Allergy Hives Verified 12/17/17 06:25 Home Medications: Home Meds Clotrimazole [Clotrimazole 1%] 1 applic TOP ASDIRECTED PRN 12/16/17 [History] tiZANidine [Zanaflex] 2 mg PO TID PRN 12/16/17 [History] Acetaminophen [Acetaminophen Extra Strength] 1,000 mg PO QID PRN 11/13/19 [History] Calcium Citrate/Vitamin D3 [Calcium Citrate + D] 1 each PO DAILY 11/13/19 [History] Cholecalciferol (Vitamin D3) [Vitamin D3] 5,000 unit PO DAILY 11/13/19 [History] Cyanocobalamin (Vitamin B12) [Vitamin B-12] 2,500 mcg SL DAILY 11/13/19 [History] Dextroamphetamine/Amphetamine [Adderall 20 mg Tablet] 20 mg PO BID 11/13/19 [History] Docusate Sodium [Colace] 100 mg PO DAILY 11/13/19 [History] Escitalopram [Lexapro] 20 mg PO DAILY 11/13/19 [History] Pedi Multivit No.25/Folic Acid [Flintstones Multivit Chew Tab] 300 mcg PO DAILY 11/13/19 [History] Vitamin B Complex/Folic Acid [Vitamin B-100 Complex] 0.4 mg PO DAILY 11/13/19 [History] Zinc Gluconate [Zinc] 50 mg PO DAILY 11/13/19 [History] Acetaminophen [Tylenol Extra Strength] 1,000 mg PO Q8H tablet 11/18/19 [Rx] Docusate Sodium [Colace] 100 mg PO BID #60 cap 11/18/19 [Rx] HYDROmorphone [Dilaudid] 2 mg PO Q6H PRN #28 tablet 11/18/19 [Rx] Ondansetron [Zofran ODT] 4 mg PO Q4H PRN #30 tab.dis 11/18/19 [Rx] bisacodyL [Dulcolax] 10 mg PO BID #30 tablet 11/18/19 [Rx] Metoclopramide HCl [Reglan] 10 mg PO QID PRN 04/11/20 [History] Oxybutynin 5 mg PO BID 04/11/20 [History] busPIRone HCl [Buspirone HCl] 5 mg PO TID 04/11/20 [History] Past Medical History HEENT History: Reports: Impaired Vision Other HEENT History: wears glasses Respiratory History: Reports: Asthma, Sleep Apnea Other Respiratory History: does not wear CPAP anymore Gastrointestinal History: Reports: Chronic Constipation, Chronic Diarrhea, GERD Genitourinary History: Reports: Retention, Urinary, Other (See Below) Other Genitourinary History: bladder suspension, uterine ablation September 2018 [employer] History: Reports: Psychiatric History: Reports: ADHD, Anxiety, Depression Endocrine/Metabolic History: Reports: Obesity/BMI 30+ Hematologic History: Reports: Anemia - Infectious Disease History Infectious Disease History: Reports: Chicken Pox - Past Surgical History HEENT Surgical History: Reports: Other (See Below) Other HEENT Surgeries/Procedures: wisdom tooth extraction GI Surgical History: Reports: Bariatric Procedure, Colonoscopy, EGD Female Surgical History: Reports: Endometrial Ablation, Tubal Ligation Social & Family History - Family History Cardiac: Reports: Other (See Below) Other Cardiac Family History: unknown to pt. "mom has something" Musculoskeletal: Reports: Arthritis Neurological: Reports: Migraines Psychiatric: Reports: Anxiety Endocrine/Metabolic: Reports: Diabetes, Type I, Hypothyroidism Oncologic: Reports: Prostate - Tobacco Use Smoking Status *Q: Current Every Day Smoker Years of Tobacco use: 30 Packs/Tins Daily: 1 - Caffeine Use Caffeine Use: Reports: Coffee - Recreational Drug Use Recreational Drug Use: Yes Recreational Drug Type: Reports: Marijuana/Hashish Recreational Drug Use Frequency: Daily H&P Review of Systems - Review of Systems: Review Of Systems: See Below General: Reports: Weakness, Fatigue, Decreased Appetite, Weight Loss HEENT: Reports: No Symptoms Pulmonary: Reports: No Symptoms Cardiovascular: Reports: No Symptoms Gastrointestinal: Reports: Abdominal Pain, Diarrhea, Decreased Appetite, Nausea, Vomiting, Other (belching a lot ) Genitourinary: Reports: No Symptoms Musculoskeletal: Reports: No Symptoms Skin: Reports: No Symptoms Psychiatric: Reports: Depression, Anxiety Neurological: Reports: Dizziness Hematologic/Lymphatic: Reports: No Symptoms Immunologic: Reports: No Symptoms Exam - Exam Exam: See Below - Exam Quality Assessment: DVT Prophylaxis General: Alert, Oriented, Moderate Distress HEENT: PERRLA, Conjunctiva Clear, Hearing Intact Neck: Supple, Trachea Midline Lungs: Clear to Auscultation, Normal Respiratory Effort Cardiovascular: Regular Rate, Regular Rhythm GI/Abdominal Exam: Distended, Guarding, Tender (in upper right and left abdominal quadrants ) (Female) Exam: Deferred Rectal (Female) Exam: Deferred Back Exam: Normal Inspection, Full Range of Motion Extremities: Normal Inspection, Normal Range of Motion Skin: Warm, Dry, Intact Neurological: Cranial Nerves Intact, Reflexes Equal Bilateral Neuro Extensive - Mental Status: Alert, Oriented x3, Normal Mood/Affect Neuro Extensive - Motor, Sensory, Reflexes: CN II-XII Intact, Normal Gait Psychiatric: Alert, Labile Mood Sepsis Event Note - Focused Exam Date Exam was Performed: 04/11/20 Time Exam was Performed: 15:20 - Problem List (1) Status post small bowel resection SNOMED Code(s): 186474698665122, [id number], [id number] ICD Code: Z90.49 - ACQUIRED ABSENCE OF OTHER SPECIFIED PARTS OF DIGESTIVE TRACT Status: Acute Current Visit: No Problem List Initiated/Reviewed/Updated: Yes Orders Last 24hrs: Active Orders 24 hr Category Date Time Status Activity as Tolerated [RC] .Routine Care 04/11/20 15:01 Active IS (RT) [RT Incentive Spirometry] [RC] ASDIRECTED Care 04/11/20 14:59 Active Intake and Output [RC] QSHIFT Care 04/11/20 15:01 Active May Shower [RC] ASDIRECTED Care 04/11/20 15:01 Active Verify Patient Consent Obtain [RC] ASDIRECTED Care 04/12/20 10:00 Active Nothing Per Oral Diet [DIET] Diet 04/11/20 Dinner Active CBC W/O DIFF,HEMOGRAM [HEME] Timed Lab 04/12/20 04:00 Ordered COMPREHENSIVE METABOLIC PN,CMP [CHEM] Routine Lab 04/11/20 15:02 Ordered FERRITIN [CHEM] Routine Lab 04/11/20 15:03 Ordered MAGNESIUM [CHEM] Routine Lab 04/11/20 15:02 Ordered PHOSPHORUS [CHEM] Routine Lab 04/11/20 15:03 Ordered Acetaminophen [Tylenol Extra Strength] Med 04/11/20 15:06 Ordered 1,000 mg PO QID PRN Acetaminophen [Tylenol] Med 04/11/20 14:38 Active 650 mg PO Q4H PRN Acetaminophen [Tylenol] Med 04/11/20 14:38 Active 650 mg RECTAL Q4H PRN Dextroamphetamine/Amphetamine [Adderall 20 mg Tablet] Med 04/12/20 08:00 Ordered 20 mg PO BID Dextrose 5%-Lactated Ringers 1,000 ml Med 04/11/20 14:45 Active IV ASDIRECTED Escitalopram [Lexapro] Med 04/12/20 09:00 Ordered 20 mg PO DAILY HYDROmorphone [Dilaudid] Med 04/11/20 15:05 Ordered 0.5 mg IVPUSH Q2H PRN Ketamine [Ketalar] Med 04/12/20 10:00 Ordered See Dose Instructions IV ASDIRECTED Ketamine [Ketalar] Med 04/12/20 10:00 Ordered See Dose Instructions IV BOLUS Lactated Ringers [Ringers, Lactated] 1,000 ml Med 04/11/20 14:45 Active IV ONETIME MVI, Adult with Vitamin K [Infuvite Adult] 10 ml Med 04/11/20 15:00 Ordered Thiamine [Vitamin B-1] 200 mg Chromium/Copper/José Manuel/Selen/Zn [Multitrace-5 Concentrate ] 1 ml Lactated Ringers [Ringers, Lactated] 1,000 ml IV ONETIME Metoclopramide [Reglan] Med 04/11/20 15:00 Active 10 mg IV Q6H Non-Formulary Medication [NF Drug] Med 04/12/20 10:00 Once See Dose Instructions IV ONETIME ONE Non-Formulary Medication [NF Drug] Med 04/12/20 10:00 Once See Dose Instructions IV ONETIME ONE Ondansetron [Zofran] Med 04/11/20 14:40 Active 4 mg IVPUSH Q4H PRN Oxybutynin Med 04/11/20 21:00 Ordered 5 mg PO BID Pantoprazole [ProTONIX IV] Med 04/11/20 16:00 Active 40 mg IV Q12H Tap Block [Tap Block, Pharmacy to Dose] Med 04/12/20 10:00 Once See Dose Instructions NERVRT ONCALL ONE busPIRone HCl [Buspirone HCl] Med 04/11/20 21:00 Ordered 5 mg PO TID cefOXitin [Mefoxin] 2 gm Med 04/12/20 10:00 Ordered Sodium Chloride 0.9% [Normal Saline] 50 ml IV ONETIME tiZANidine [Zanaflex] Med 04/11/20 15:06 Ordered 2 mg PO TID PRN Sequential Compression Device [OM.PC] Routine Oth 04/11/20 15:01 Ordered Medication Orders Acetaminophen (Tylenol) 650 mg PO Q4H PRN PRN Reason: PAIN/FEVER Acetaminophen (Tylenol) 650 mg RECTAL Q4H PRN PRN Reason: PAIN/FEVER Acetaminophen (Tylenol Extra Strength) 1,000 mg PO QID PRN PRN Reason: Pain Escitalopram Oxalate (Lexapro) 20 mg PO DAILY KATHRYN Hydromorphone HCl (Dilaudid) 0.5 mg IVPUSH Q2H PRN PRN Reason: Pain Dextrose/Lactated Ringer's (Dextrose 5%-Lactated Ringers) 1,000 mls @ 150 mls/hr IV ASDIRECTED KATHRYN Lactated Ringer's (Ringers, Lactated) 1,000 mls @ 500 mls/hr IV ONETIME ONE Stop: 04/11/20 16:44 Multivitamins/Minerals 10 ml/Thiamine HCl 200 mg/ Chromium/Copper/Manganese/Seleni/Zn 1 ml/ Lactated Ringer's 1,013 mls @ 500 mls/hr IV ONETIME ONE Stop: 04/11/20 19:01 Cefoxitin Sodium 2 gm/ Sodium (Chloride) 50 mls @ 100 mls/hr IV ONETIME ONE Stop: 04/12/20 10:29 Ketamine HCl (Ketalar) 0 mg IV BOLUS KATHRYN Ketamine HCl (Ketalar) 0 mg IV ASDIRECTED KATHRYN Metoclopramide HCl (Reglan) 10 mg IV Q6H KATHRYN Non-Formulary Medication (Tap Block, Pharmacy To Dose) 0 ml NERVRT ONCALL ONE Stop: 04/12/20 10:01 Non-Formulary Medication (Nf Drug) 0 each IV ONETIME ONE Stop: 04/12/20 10:01 Non-Formulary Medication (Nf Drug) 0 each IV ONETIME ONE Stop: 04/12/20 10:01 Non-Formulary Medication (Buspirone Hcl [Buspirone Hcl]) 5 mg PO TID KATHRYN Non-Formulary Medication (Dextroamphetamine/Amphetamine [Adderall 20 Mg Tablet]) 20 mg PO BID KATHRYN Ondansetron HCl (Zofran) 4 mg IVPUSH Q4H PRN PRN Reason: Nausea Oxybutynin Chloride (Oxybutynin) 5 mg PO BID KATHRYN Pantoprazole Sodium (Protonix Iv) 40 mg IV Q12H KATHRYN Tizanidine HCl (Zanaflex) 2 mg PO TID PRN PRN Reason: spams Assessment/Plan Comment:: Assessment: Partial Small Bowel Obstruction Dehydration Nausea and vomiting [facility]ETTE EASONY Gastric Bypass Surgery - 12/17/2017 - 134 lb weight loss Unspecified Malabsorption classified elsewhere Vitamin B deficiency Vitamin D deficiency Anxiety/Depression Nicotine Addiction Asthma Osteoarthritis of both knees Hyperlipidemia Muscle Spasms of the neck Plan: CT Scan is being pushed through to [facility] See orders in EMR Plan of Hospitalization - 4 nights and 5 days. Bety FOOTE C - Mortality Measure Prognosis:: Good
[2020-04-11] MEDS ORDERED: Potassium Chloride Riders 40 MEQ in Premix Bag 1 BAG IV ONE (16:11)
[2020-04-11] MEDS: Pantoprazole 40 MG Vial IV SCH (16:21)
[2020-04-11] MEDS: Metoclopramide 10 MG/2 ML SDV IV SCH ×2 (16:22→20:06)
[2020-04-11] MEDS ORDERED: MVI, Adult with Vitamin K 10 ML, Thiamine 200 MG, Chromium/Copper/Mang/Selen/Zn 1 ML in... IV ONE ×4 (17:00)
[2020-04-11] MEDS: Potassium Chloride 20 MEQ, Lidocaine 1% 2 ML in Sodium Chloride 0.9% 100 ML IV SCH ×2 (18:16→20:36)
[2020-04-11] MEDS: Oxybutynin 5 MG Tab PO SCH (20:06)
[2020-04-11] MEDS: busPIRone 5 MG Tab PO SCH (20:06)
[2020-04-11] MEDS ORDERED: BUSPIRONE HCL 5 MG PO SCH (21:00)
[2020-04-12] MEDS: HYDROmorphone 0.5 MG/0.5 ML Syringe IVPUSH PRN ×2 (01:08→07:33)
[2020-04-12] MEDS: Metoclopramide 10 MG/2 ML SDV IV SCH ×3 (03:20→18:40)
[2020-04-12] MEDS: Pantoprazole 40 MG Vial IV SCH (03:20)
[2020-04-12] MEDS ORDERED: Lidocaine 1% with EPINEPHrine 1:100,000 50 ML MDV ONE (06:48)
[2020-04-12] MEDS ORDERED: Meropenem 500 MG SDV ONE (06:48)
[2020-04-12] MEDS ORDERED: Bupivacaine 0.5% 50 ML MDV ONE (06:48)
[2020-04-12] MEDS: Amphetamine/Dextroamphetamine Salts 10 MG Tab PO SCH ×2 (07:25→16:28)
[2020-04-12] MEDS ORDERED: Rocuronium 50 MG/5 ML Vial ONE (07:51)
[2020-04-12] MEDS ORDERED: Dexamethasone 4 MG/ML SDV ONE (07:51)
[2020-04-12] MEDS ORDERED: Ondansetron 4 MG/2 ML SDV ONE (07:51)
[2020-04-12] MEDS ORDERED: Succinylcholine 200 MG/10 ML MDV ONE (07:51)
[2020-04-12] MEDS ORDERED: Glycopyrrolate 0.2 MG/ML 5 ML MDV ONE (07:51)
[2020-04-12] MEDS ORDERED: fentaNYL 250 MCG/5 ML SDV ONE ×2 (07:51→13:25)
[2020-04-12] MEDS ORDERED: Propofol 200 MG/20 ML SDV ONE (07:51)
[2020-04-12] MEDS ORDERED: Neostigmine Methylsulfate 1 MG/ML 5 ML Syringe ONE (07:51)
[2020-04-12] MEDS: Potassium Phos in 0.9 % NaCl 15 MMOL in Premix Bag 1 BAG IV SCH ×4 (08:25→11:34)
[2020-04-12] MEDS: busPIRone 5 MG Tab PO SCH ×3 (08:26→20:46)
[2020-04-12] MEDS: Escitalopram 20 MG Tab PO SCH (08:26)
[2020-04-12] MEDS: Oxybutynin 5 MG Tab PO SCH ×2 (08:26→20:48)
[2020-04-12] MEDS ORDERED: Ketamine 500 MG/5 ML MDV IV SCH ×3 (10:00→11:00)
[2020-04-12] MEDS ORDERED: Non-Formulary Medication 1 Each IV ONE ×2 (10:00)
--- NOTE | 2020-04-12 10:16 | PN ---
DATE OF SERVICE: 04/12/2020 SUBJECTIVE: Delfina reports that after being n.p.o. since midnight, she has had no further pain. She has been up ambulating and remainder of review of systems negative for any pertinent positives and negatives. OBJECTIVE: GENERAL: Delfina is a pleasant 44-year-old female. VITAL SIGNS: TPR at 0327; 96.7, 61, 18. Blood pressure 99/47. HEENT: Negative. NECK: Supple. HEART: Regular rate and rhythm. LUNGS: Clear. ABDOMEN: Generalized tenderness in all 4 quadrants. EXTREMITIES: Without peripheral edema. ASSESSMENT: Partial small-bowel obstruction. PLAN: Remain n.p.o. Orders to be written postoperatively. Bety Norman PA-C /[id number]
[2020-04-12] MEDS ORDERED: Magnesium Sulfate 1.8 GM in Sodium Chloride 0.9% 100 ML IV SCH (11:00)
[2020-04-12] MEDS ORDERED: cefOXitin 2 GM in Sodium Chloride 0.9% 50 ML IV ONE (11:00)
[2020-04-12] MEDS ORDERED: Ketamine 50 MG in Sodium Chloride 0.9% 49.5 ML IV SCH (11:00)
[2020-04-12] MEDS ORDERED: Lidocaine 1% 2 ML ONE (13:06)
[2020-04-12] MEDS ORDERED: diphenhydrAMINE 50 MG/ML SDV IVPUSH PRN ×2 (13:57→16:00)
[2020-04-12] MEDS ORDERED: diphenhydrAMINE 25 MG Cap PO PRN (13:57)
[2020-04-12] MEDS ORDERED: HYDROmorphone/Normal Saline 15 MG/30 ML PCA IV PRN (13:57)
[2020-04-12] MEDS ORDERED: Ondansetron 4 MG/2 ML SDV IVPUSH PRN (13:57)
[2020-04-12] MEDS ORDERED: Naloxone 0.4 MG/ML SDV IVPUSH PRN (13:57)
[2020-04-12] MEDS ORDERED: hydrOXYzine HCL 100 MG/2 ML SDV IM ONE (14:36)
[2020-04-12] MEDS ORDERED: fentaNYL 100 MCG/2 ML SDV IVPUSH ONE (14:36)
[2020-04-12] MEDS ORDERED: Dextrose 5%-Lactated Ringers 1,000 ML IV SCH (15:45)
[2020-04-12] MEDS ORDERED: SUMAtriptan 50 MG Tab PO PRN (15:57)
[2020-04-12] MEDS ORDERED: Acetaminophen 500 MG Tab PO PRN (16:00)
[2020-04-12] MEDS ORDERED: hydrOXYzine HCL 100 MG/2 ML SDV IM PRN (16:00)
[2020-04-12] MEDS ORDERED: Albuterol/Ipratropium 3.0-0.5 MG/3 ML Neb Soln INH PRN (16:00)
[2020-04-12] MEDS ORDERED: Calcium Gluconate 10% 1 GM/10 ML SDV IVPUSH PRN (16:00)
[2020-04-12] MEDS ORDERED: Labetalol 20 MG/4 ML Syringe IVPUSH PRN (16:00)
[2020-04-12] MEDS ORDERED: MVI, Adult with Vitamin K 10 ML, Thiamine 200 MG, Chromium/Copper/Mang/Selen/Zn 1 ML in... IV SCH ×4 (17:00)
[2020-04-12] MEDS: Cyclobenzaprine 10 MG Tab PO PRN (17:08)
[2020-04-12] MEDS: cefOXitin 2 GM in Sodium Chloride 0.9% 50 ML IV SCH (18:00)
[2020-04-12] MEDS: Albuterol/Ipratropium 3.0-0.5 MG/3 ML Neb Soln INH SCH (20:46)
[2020-04-12] MEDS: Heparin Sodium 5,000 Units/ML Vial SUBCUT SCH ×2 (20:46→20:59)
[2020-04-12] MEDS: Fluticasone Propionate Nasal Spray 16 GM Bottle NASBOTH SCH (20:47)
[2020-04-12] MEDS: Metoclopramide 10 MG/2 ML SDV IVPUSH PRN (20:55)
[2020-04-12] MEDS: Acetaminophen 500 MG Tab PO SCH ×2 (21:30→22:27)
[2020-04-12] MEDS ORDERED: Pantoprazole 40 MG Vial IVPUSH SCH (22:00)
[2020-04-13] MEDS: cefOXitin 2 GM in Sodium Chloride 0.9% 50 ML IV SCH ×4 (00:14→17:57)
[2020-04-13] MEDS ORDERED: Iopamidol 612 MG/ML 50 ML SDV PO STA (01:20)
[2020-04-13] MEDS: Acetaminophen 500 MG Tab PO SCH ×3 (05:48→22:34)
[2020-04-13] MEDS: Albuterol/Ipratropium 3.0-0.5 MG/3 ML Neb Soln INH SCH ×4 (07:23→20:22)
[2020-04-13] MEDS ORDERED: Dextrose 5%-Lactated Ringers 1,000 ML IV SCH (08:00)
[2020-04-13] MEDS ORDERED: hydrOXYzine HCl 25 MG Tab PO PRN (08:02)
[2020-04-13] MEDS: Heparin Sodium 5,000 Units/ML Vial SUBCUT SCH ×2 (08:05→20:22)
[2020-04-13] MEDS: Amphetamine/Dextroamphetamine Salts 10 MG Tab PO SCH ×2 (08:05→12:22)
[2020-04-13] MEDS: busPIRone 5 MG Tab PO SCH ×3 (08:06→12:22)
[2020-04-13] MEDS: Celecoxib 200 MG Cap PO SCH ×2 (08:06→20:22)
[2020-04-13] MEDS: Fluticasone Propionate Nasal Spray 16 GM Bottle NASBOTH SCH ×2 (08:06→20:24)
[2020-04-13] MEDS: Oxybutynin 5 MG Tab PO SCH ×2 (08:07→20:22)
[2020-04-13] MEDS: Escitalopram 20 MG Tab PO SCH (08:08)
[2020-04-13] MEDS: Bisacodyl 5 MG Tab PO SCH ×2 (10:08→20:22)
[2020-04-13] MEDS: Cetirizine 10 MG Tab PO SCH (10:08)
[2020-04-13] MEDS: Docusate Sodium 100 MG Cap PO SCH ×2 (10:08→20:22)
[2020-04-13] MEDS: HYDROmorphone 2 MG Tab PO PRN ×3 (10:12→20:21)
[2020-04-13] MEDS: Ondansetron 4 MG Tab.DIS PO PRN ×2 (12:26→20:47)
[2020-04-13] MEDS: MVI, Adult with Vitamin K 10 ML, Thiamine 200 MG, Chromium/Copper/Mang/Selen/Zn 1 ML in... IV SCH ×4 (15:36)
[2020-04-13] MEDS: busPIRone 10 MG Tab PO SCH (17:57)
[2020-04-13] MEDS: Pantoprazole 40 MG Tab.CR PO SCH (20:23)
[2020-04-13] MEDS: hydrOXYzine HCl 25 MG Tab PO SCH (20:24)
[2020-04-14] MEDS: cefOXitin 2 GM in Sodium Chloride 0.9% 50 ML IV SCH (00:41)
[2020-04-14] MEDS: Acetaminophen 500 MG Tab PO SCH ×3 (05:06→21:50)
[2020-04-14] MEDS: Albuterol/Ipratropium 3.0-0.5 MG/3 ML Neb Soln INH SCH ×4 (07:12→20:34)
[2020-04-14] MEDS ORDERED: Potassium Chloride Riders 40 MEQ in Premix Bag 1 BAG IV ONE (07:41)
[2020-04-14] MEDS: busPIRone 10 MG Tab PO SCH ×3 (08:59→16:34)
[2020-04-14] MEDS: Fluticasone Propionate Nasal Spray 16 GM Bottle NASBOTH SCH ×2 (08:59→20:34)
[2020-04-14] MEDS: Docusate Sodium 100 MG Cap PO SCH ×2 (09:00→20:33)
[2020-04-14] MEDS ORDERED: Cyanocobalamin (Vitamin B12) 1,000 MCG/ML SDV IM ONE (09:00)
[2020-04-14] MEDS: Bisacodyl 5 MG Tab PO SCH ×2 (09:00→20:33)
[2020-04-14] MEDS: Oxybutynin 5 MG Tab PO SCH ×2 (09:01→20:33)
[2020-04-14] MEDS: Escitalopram 20 MG Tab PO SCH (09:01)
[2020-04-14] MEDS: Celecoxib 200 MG Cap PO SCH ×2 (09:01→20:33)
[2020-04-14] MEDS: Cetirizine 10 MG Tab PO SCH (09:04)
[2020-04-14] MEDS: Amphetamine/Dextroamphetamine Salts 10 MG Tab PO SCH ×2 (09:09→12:14)
[2020-04-14] MEDS: Potassium Chloride 20 MEQ, Lidocaine 1% 2 ML in Sodium Chloride 0.9% 100 ML IV SCH ×2 (09:16→12:14)
[2020-04-14] MEDS: HYDROmorphone 2 MG Tab PO PRN ×3 (09:20→20:27)
[2020-04-14] MEDS: Bisacodyl 10 MG Supp RECTAL SCH ×2 (09:24→20:33)
[2020-04-14] MEDS: Heparin Sodium 5,000 Units/ML Vial SUBCUT SCH ×2 (10:54→20:33)
[2020-04-14] MEDS: Cyclobenzaprine 10 MG Tab PO PRN (11:04)
[2020-04-14] MEDS: MVI, Adult with Vitamin K 10 ML, Thiamine 200 MG, Chromium/Copper/Mang/Selen/Zn 1 ML in... IV SCH ×4 (16:34)
[2020-04-14] MEDS: hydrOXYzine HCl 25 MG Tab PO SCH (20:33)
[2020-04-14] MEDS: Pantoprazole 40 MG Tab.CR PO SCH (20:33)
[2020-04-14] MEDS: Metoclopramide 10 MG/2 ML SDV IVPUSH PRN (23:33)
[2020-04-15] MEDS: Acetaminophen 500 MG Tab PO SCH (05:12)
[2020-04-15] MEDS: Albuterol/Ipratropium 3.0-0.5 MG/3 ML Neb Soln INH SCH (06:58)
[2020-04-15] MEDS: HYDROmorphone 2 MG Tab PO PRN (07:49)
--- NOTE | 2020-04-15 08:14 | PN ---
DATE OF SERVICE: 04/13/2020 SUBJECTIVE: Delfina is postoperative day #1. Her pain has been controlled. She has been up ambulating. Oral intake 1500. Urine output 1125. She requested her Jackson to be removed last evening and she has voided 600 mL. She has no other questions or concerns with the exception some of her medications she states she takes them at different times. OBJECTIVE: GENERAL: Delfina Baer is a 44-year-old female. She is alert and orientated, sitting up in a chair, quite talkative. VITAL SIGNS: TPR at 0747 is 95.9, 79, 16. Blood pressure 109/53. HEENT: Negative. NECK: Supple. HEART: Regular rate and rhythm. LUNGS: Clear. Dressing dry and intact. Aquacel is on. EXTREMITIES: Without peripheral edema. ASSESSMENT: Exploratory laparotomy with: 1. Reduction of small bowel volvulus and closure of internal hernia. 2. Repair of incarcerated incisional hernia with mesh. 3. Repair of non-incarcerated umbilical hernia with mesh. 4. Placement of Interceed mesh x2. POSTOPERATIVE DIAGNOSES: 1. Small-bowel volvulus. 2. Incarcerated incisional hernia. 3. Non-incarcerated umbilical hernia. Date of Surgery: 04/12/2020. Surgeon: Gus Ugalde MD. PLAN: 1. May shower. 2. Step 2 gastric bypass diet with no cereal. 3. Dulcolax 10 mg tabs p.o. b.i.d. 4. Zyrtec 10 mg p.o. a.m. 5. Decrease IV to 100 mL per hour. 6. Colace 100 mg p.o. b.i.d. 7. Dilaudid 2 to 4 mg every 4 hours p.r.n. pain. 8. Atarax 25 mg p.o. q.4 hours p.r.n. pain/itching. 9. Atarax 50 mg at bedtime scheduled per Dermatology recommendations. 10.Zofran ODT 4 mg p.o. q.4 hours p.r.n. nausea, vomiting. 11.Convert IV to saline lock if oral intake is 500 mL by 1400. 12.BuSpar, change in time. The patient takes 5 mg p.o. with meals. 13.Flonase 2 sprays in each nostril in a.m. and at suppertime. 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 15.Discontinue Vistaril 100 mg IM. 16.Discontinue cardiac monitoring and pulse oximetry. 17.Continue to use incentive spirometer. 18.We will evaluate p.r.n. or in a.m. Bety Norman PA-C /[id number]
[2020-04-15] MEDS: Escitalopram 20 MG Tab PO SCH (08:21)
[2020-04-15] MEDS: busPIRone 10 MG Tab PO SCH (08:21)
[2020-04-15] MEDS: Bisacodyl 5 MG Tab PO SCH (08:21)
[2020-04-15] MEDS: Fluticasone Propionate Nasal Spray 16 GM Bottle NASBOTH SCH (08:21)
[2020-04-15] MEDS: Oxybutynin 5 MG Tab PO SCH (08:21)
[2020-04-15] MEDS: Celecoxib 200 MG Cap PO SCH (08:21)
[2020-04-15] MEDS: Docusate Sodium 100 MG Cap PO SCH (08:21)
[2020-04-15] MEDS: Cetirizine 10 MG Tab PO SCH (08:21)
[2020-04-15] MEDS: Bisacodyl 10 MG Supp RECTAL SCH (08:22)
[2020-04-15] MEDS: Amphetamine/Dextroamphetamine Salts 10 MG Tab PO SCH (08:37)
--- NOTE | 2020-04-15 08:41 | PN ---
DATE OF SERVICE: 04/14/2020 HISTORY: Delfina's vital signs have been stable, afebrile, up ambulating several times in the burden. Oral intake 2100 and urine output of 1000+, two voids. She has not had a bowel movement yet. Feels like she is going to pass flatus. Pain is controlled. REVIEW OF SYSTEMS: Remainder of review of systems negative for any pertinent positives or negatives. OBJECTIVE: GENERAL: Delfina Baer is a pleasant 44-year-old female. VITAL SIGNS: TPR at 0728 is 98, 93, 16, and blood pressure 100/49. HEENT: Negative. NECK: Supple. HEART: Regular rate and rhythm. LUNGS: Clear. ABDOMEN: Aquacel dressings intact. Abdomen is soft, minimally tender, which would be expected. EXTREMITIES: Without peripheral edema. LABORATORY DATA: Hemoglobin 9.9 yesterday and 7.2 this morning. Potassium is 3.4. ASSESSMENT: 1. Low hemoglobin 7.4. 2. Exploratory lap with: a. Reduction of small bowel volvulus and closure of internal hernia. b. Repair of incarcerated incisional hernia with mesh. c. Repair of non-incarcerated umbilical hernia with mesh. d. Placement of Interceed mesh x2. POSTOPERATIVE DIAGNOSES: 1. Small-bowel volvulus. 2. Incarcerated incisional hernia. 3. Non-incarcerated umbilical hernia. DATE OF SURGERY: 03/25/2020. PLAN: 1. Type and cross for 2 units of packed red blood cells. 2. Give 1 unit of packed red blood cells now. 3. Check hemoglobin in 2 hours. Call with results. 4. KCl at 40 mEq IV. 5. Dulcolax suppositories b.i.d. until the patient has bowel movement. 6. Check CBC, CMP, mag, and phos in a.m. 7. We will evaluate p.r.n. or in a.m. Bety Norman PA-C /[id number]
--- NOTE | 2020-04-15 09:17 | CR ---
UGI Limited HISTORY: Postbariatric surgery FINDINGS: Patient swallowed water-soluble contrast. Upright views of the abdomen show no evidence of extravasation or obstruction. There is some narrowing at the distal esophagus. Contrast does pass through. This may represent some focal spasm. IMPRESSION: Status post bariatric surgery No extravasation or obstruction seen Possible spasm distal esophagus
[2020-04-15] MEDS ORDERED: Nystatin Susp 100,000 Unit/ML 5 ML UD Cup PO SCH (10:00)
[2020-04-15] MEDS ORDERED: Magnesium Oxide 400 MG Tab PO SCH (17:00)
--- NOTE | 2020-04-16 04:15 | DISCH ---
ADMISSION DIAGNOSES: 1. Partial small-bowel obstruction. 2. Dehydration. 3. Nausea and vomiting. 4. Status post Natalie-en-Y gastric bypass surgery. 5. Unspecified surgical malabsorption. 6. B12 deficiency. 7. Vitamin D deficiency. 8. Anxiety. 9. Depression. 10.Nicotine addiction. 11.Asthma. 12.Osteoporosis of both knees. 13.Hyperlipidemia. 14.Muscle spasms of the neck. DISCHARGE DIAGNOSES: Exploratory laparotomy with; 1. Reduction of small bowel volvulus and closure of internal hernia. 2. Repair of incarcerated incisional hernia with mesh. 3. Repair of non-incarcerated umbilical hernia with mesh. 4. Placement of Interceed mesh x2. POSTOPERATIVE DIAGNOSES: 1. Small bowel volvulus. 2. Incarcerated incisional hernia. 3. Non-incarcerated umbilical hernia. Date of procedure 04/12/2020. Surgeon: Gus Ugalde MD. 4. Hemoglobin 7.2, requiring 1 unit of packed red blood cells. 5. Low magnesium. 6. Thrush in mouth. HISTORY: Delfina Baer is a 44-year-old female who was admitted on 04/11/2020 for severe dehydration and partial small-bowel obstruction with nausea and vomiting and weakness. After preoperative evaluation and discussion of possible risks and possible complications, she wished to proceed with surgical procedure. HOSPITAL COURSE: Delfina was admitted on 04/11/2020 for IV fluids and pain management. She had her surgery on 04/12/2020. She had no operative complications. Pain was controlled. Activity was good. On 04/14/2020, hemoglobin was 7.2. She was given 1 unit of packed red blood cells and hemoglobin that evening went up to 9. On 04/15/2020, she was able to be discharged to home. Hemoglobin was 7.5, magnesium 1.7. Pain was controlled. She had a small bowel movement, activity good, and she was able to be discharged to home. PHYSICAL EXAMINATION: GENERAL: Delfina Baer is a pleasant 44-year-old female. VITAL SIGNS: Height is 5 feet 7 inches. Weight is 139 pounds. TPR at 0500 is 97.5, 76, 18. Blood pressure 110/52. HEENT: Negative. NECK: Supple. HEART: Regular rate and rhythm. LUNGS: Clear. ABDOMEN: Aquacel dressings on. EXTREMITIES: Without peripheral edema. DISPOSITION: Discharged to home. CONDITION: Stable and improving. FOLLOWUP APPOINTMENT: Bety Norman PA-C at [facility], 04/23/2020 at 11:30 a.m. She is to come at 11 a.m. for a lab appointment to check CBC, CMP, and magnesium. HOME MEDICATIONS: 1. Dilaudid 2 mg oral q.6 hours p.r.n. pain, #28. 2. Flexeril 10 mg oral q.8 hours p.r.n., muscle spasms #30. 3. Magnesium oxide 400 mg oral daily, #100. 4. Nystatin 5 mL oral 4 times daily, #200 mL. 5. Tylenol 1000 mg every 8 hours p.r.n. pain. To resume home medications; 1. Calcium citrate 1 daily. 2. Vitamin D3 5000 International Units oral daily. 3. Clotrimazole 1% 1 applicator topical p.r.n. 4. Vitamin B12 2500 mcg sublingual daily. 5. Adderall 20 mg twice daily. 6. Docusate sodium 100 mg oral twice daily. 7. Lexapro 20 mg oral daily. 8. Reglan 10 mg oral 4 times a day p.r.n. nausea. 9. Oxybutynin 5 mg oral twice daily. 10.Multivitamin 1 twice daily. 11.Vitamin B complex 1 daily. 12.Zinc oxide 50 mg oral daily. 13.BuSpar 5 mg oral 3 times a day. DISCHARGE DIET: Step 3 gastric bypass diet. Drink 8 to 10 glasses of water a day. DISCHARGE ACTIVITY: No lifting over 10 pounds for 6 weeks. Other activity: Walk at least 6 times daily inside your home. Driving: Do not drive for 1 week and while on pain medication. Shower/bathing: May shower. DISCHARGE INSTRUCTIONS: Notify provider if any fever, increased pain, nausea, or vomiting. Keep site clean and dry. Take off Aquacel dressing on 04/17/2020. Wear abdominal binder with pressure dressing over hernia site for 6 weeks. Use incentive spirometer 10 times every hour awake for 1 week.
--- NOTE | 2020-04-18 11:25 | OR ---
DATE OF PROCEDURE: 04/12/2020 SURGEON: Gus Ugalde MD PREOPERATIVE DIAGNOSIS: Partial small bowel obstruction, likely related to small bowel volvulus. POSTOPERATIVE DIAGNOSES: 1. Partial small bowel obstruction associated with small bowel volvulus. 2. Incarcerated incisional hernia. 3. Non-incarcerated umbilical hernia. OPERATIVE PROCEDURE: Exploratory laparotomy with: 1. Reduction of small bowel volvulus and closure of internal hernia (80635). 2. Repair of incarcerated incisional hernia with mesh (05005, 21465). 3. Repair of non-incarcerated umbilical hernia (16615). 4. Placement of Interceed mesh x2 to space the pelvic and abdominal wall from underlying viscera to limit recurrent adhesion formation (12753). ANESTHESIA: General. AREA REPRESENTATIVE: Bety Norman PA-C INDICATIONS FOR PROCEDURE: This is a 44-year-old status post previous Natalie-en-Y gastric bypass, presenting with a partial small bowel obstruction picture. On CT scan, she has some swelling of the mesentery consistent with small bowel volvulus. Plan is to proceed with a limited laparotomy and reduction of volvulus and lysis of adhesions and bowel resection as indicated. Potential risks including bleeding, infection, injury to underlying viscera, problems with bowel obstruction or volvulus recurring, as well as remote possibility of cardiopulmonary, septic, or hemorrhagic complications leading to were discussed, and the patient wishes to proceed. DETAILS OF PROCEDURE: The patient was taken to the operating room and placed in the supine position. After general endotracheal anesthesia was induced, Jackson catheter was inserted, and the abdomen prepped and draped. A midline incision from the umbilicus roughly a handsbreadth toward the xiphoid was made and carried down through the skin and subcutaneous tissue and through the peritoneal cavity. Upon entering the peritoneal cavity, the patient was noted to have 2 hernias. A fairly large epigastric incisional hernia was present and a smaller non-incarcerated umbilical hernia. The incisional hernia had some adherent omentum and transverse colon incarcerated within it, which was reduced using a combination of sharp and blunt dissection. The underlying viscera were then examined. The patient was noted to have a small bowel volvulus with rotation of a large amount of small bowel in a [id number] direction underneath the leaves of the jejunojejunostomy. This was gradually reduced. Prior to reduction, the bowel somewhat marcial in color, consistent with some venous stasis, and the bowel became pink and well perfused following its reduction. Mesenteric defect was then closed with a 2-0 silk stitch. There was a defect underneath the Natalie limb as well, which was also closed with a 2-0 silk stitch. At this point, no further problems noted. The bowel appeared to be viable. The abdomen was irrigated with meropenem-containing saline solution. The incisional hernia was then repaired using a 13.8 x 17[address] hernia patch with about 5 cm on its perimeter on the polypropylene side of the mesh, 2-0 Vicryl sutures were placed, and small stab wounds were placed, where those sutures would be pulled up to keep the mesh fixed well away from the fascial edges. Once these sutures were placed, the mesh was soaked in antibiotic-containing saline solution, and the mesh placed in an intraperitoneal location. The upper half of the sutures were then pulled up through the stab wounds, which then allowed placement of Interceed mesh underlying that, going up toward the bowel underneath the mesh to limit adhesion formation between those surfaces and the underlying viscera. The remaining sutures of the mesh were then pulled up, which then covered up the umbilical hernia site as well. Once these were in place, the sutures were tied, and the mesh then fixed additionally with titanium tacking screws on the underlying shelf circumferentially as well. At that point, no further problems were noted. The fascia was then approximated with #2 Vicryl stitch, which includes primary fascial repair of the umbilical and incisional hernias, and the subcutaneous tissue approximated with some 3-0 and 4-0 Vicryl stitch and the skin with shila. Prior to closure, bilateral transversus abdominis plane blocks had been placed, and incision was also anesthetized with 1% lidocaine with Marcaine. The patient was taken to the recovery room in satisfactory condition. Physician communications assistant, Bety Norman, played an essential role in assisting in this case helping to position the patient, retract structures as needed, as well as suturing and cutting sutures when indicated. Her presence improved the patient's safety and decreased operative time. Gus Ugalde MD /[id number]
== END 2020-04-15 09:05 | disposition home or self-care (01) | DRG 330 ==
LOC: JP.MS 14:16
PROVIDERS: ADMIT Surgery; ATTEND Physician Assistant Medical
PROC: 3E0M05Z Introduction of Adhesion Barrier into Peritoneal Cavity, Open Approach (ICD-10-PCS; principal; 2020-04-12)
PROC: 0WUF0JZ Supplement Abdominal Wall with Synthetic Substitute, Open Approach (ICD-10-PCS; principal; 2020-04-12)
PROC: 0WQF0ZZ Repair Abdominal Wall, Open Approach (ICD-10-PCS; principal; 2020-04-12)
PROC: 0DS80ZZ Reposition Small Intestine, Open Approach (ICD-10-PCS; principal; 2020-04-12)
DX: K56.2 Volvulus (principal); K91.2 Postsurgical malabsorption, not elsewhere classified; K43.0 Incisional hernia with obstruction, without gangrene; B37.0 Candidal stomatitis; E86.0 Dehydration; E55.9 Vitamin D deficiency, unspecified; F41.9 Anxiety disorder, unspecified; F32.9 Major depressive disorder, single episode, unspecified; J45.909 Unspecified asthma, uncomplicated; E78.5 Hyperlipidemia, unspecified; R25.2 Cramp and spasm; M81.0 Age-related osteoporosis without current pathological fracture; Z98.84 Bariatric surgery status; K42.9 Umbilical hernia without obstruction or gangrene; Z20.828 Contact with and (suspected) exposure to other viral communicable diseases
CPT/HCPCS: 36415; 36430; 74240; 74240-26; 80053; 82728; 83735; 84100; 85027; 86850; 86900; 86901; 86920; 86922; 88302; 94640; 94762; A9270-GY; C1713; C1781; C9113; J0171; J0330; J0694; J1100; J1170; J1644; J2001; J2020; J2185; J2405; J2704; J2710; J2765; J2795; J3010; J3410; J3411; J3420; J3475; J3480; J3490; J7050; J7120; J7121; J7620-GY; P9016; Q9967; U0002

== ENCOUNTER 2020-05-16 23:11 | Emergency (ER) | payer MEDICAID ==
--- NOTE | 2020-05-17 00:06 | EDM.PDOC ---
ED HPI GENERAL MEDICAL PROBLEM - General Chief Complaint: Gastrointestinal Problem Stated Complaint: R SIDE LOW ABD PAIN Time Seen by Provider: 05/16/20 23:51 Source of Information: Reports: Patient History Limitations: Reports: No Limitations - History of Present Illness INITIAL COMMENTS - FREE TEXT/NARRATIVE: Presents tonight for evaluation of abdominal bloating, concern for possible bowel obstruction, concern for next steps to deal with a cystocele/rectocele. Throughout complicated history, the patient underwent surgery for an incisional hernia approximately 1 month ago. Afterward because of lower abdominal pressure, she was seen by an area rater associate who felt that she may have difficulty with cystocele and rectocele. It was not felt to be something that indicated the need for surgery. She contacted Dr. Ugalde's office, the one who did her incisional hernia repair, to describe her symptoms but it was recommended that for the lower abdominal discomfort she continue with the rater associate. She had an appointment with that doctor earlier today but threw a long story had and on happy encounter and left the office. She is here now wondering what to do? Onset: Gradual Duration: Week(s): (4) Location: Reports: Abdomen Quality: Reports: Dull Severity: Moderate Improves with: Reports: None Worsens with: Reports: Eating Associated Symptoms: Reports: Loss of Appetite, Nausea/Vomiting Abdominal Pain Score (Numeric/FACES): 4 - Related Data Allergies Allergy/AdvReac Type Severity Reaction Status Date / Time amoxicillin Allergy Hives Verified 05/16/20 23:26 erythromycin base Allergy Other Verified 05/16/20 23:26 Penicillins Allergy Other Verified 05/16/20 23:26 sulfamethoxazole Allergy Hives Verified 05/16/20 23:26 trimethoprim [From ] Allergy Hives Verified 05/16/20 23:26 Home Meds: Home Meds Clotrimazole [Clotrimazole 1%] 1 applic TOP ASDIRECTED PRN 12/16/17 [History] tiZANidine [Zanaflex] 2 mg PO TID PRN 12/16/17 [History] Acetaminophen [Acetaminophen Extra Strength] 1,000 mg PO QID PRN 11/13/19 [History] Calcium Citrate/Vitamin D3 [Calcium Citrate + D] 1 each PO DAILY 11/13/19 [History] Cholecalciferol (Vitamin D3) [Vitamin D3] 5,000 unit PO DAILY 11/13/19 [History] Cyanocobalamin (Vitamin B12) [Vitamin B-12] 2,500 mcg SL DAILY 11/13/19 [History] Dextroamphetamine/Amphetamine [Adderall 20 mg Tablet] 20 mg PO BID 11/13/19 [History] Escitalopram [Lexapro] 20 mg PO DAILY 11/13/19 [History] Pedi Multivit No.25/Folic Acid [Flintstones Multivit Chew Tab] 300 mcg PO DAILY 11/13/19 [History] Vitamin B Complex/Folic Acid [Vitamin B-100 Complex] 0.4 mg PO DAILY 11/13/19 [History] Zinc Gluconate [Zinc] 50 mg PO DAILY 11/13/19 [History] Acetaminophen [Tylenol Extra Strength] 1,000 mg PO Q8H tablet 11/18/19 [Rx] Docusate Sodium [Colace] 100 mg PO BID #60 cap 11/18/19 [Rx] bisacodyL [Dulcolax] 10 mg PO BID #30 tablet 11/18/19 [Rx] Metoclopramide HCl [Reglan] 10 mg PO QID PRN 04/11/20 [History] busPIRone HCl [Buspirone HCl] 5 mg PO TID 04/11/20 [History] Cyclobenzaprine [Flexeril] 10 mg PO Q8H PRN #30 tablet 04/15/20 [Rx] Magnesium Oxide 400 mg PO DAILY #100 tablet 04/15/20 [Rx] Fluticasone Propionate [Flonase Allergy Relief] 9.9 ml NS ASDIRECTED 05/16/20 [History] hydrOXYzine HCL [Hydroxyzine HCl] 50 mg PO BEDTIME 05/16/20 [History] Past Medical History HEENT History: Reports: Allergic Rhinitis, Impaired Vision Other HEENT History: wears glasses Cardiovascular History: Reports: Other (See Below) Other Cardiovascular History: pericardial cyst - following Dr Barrett at [facility] Respiratory History: Reports: Asthma, Sleep Apnea Other Respiratory History: does not wear CPAP anymore Gastrointestinal History: Reports: Chronic Constipation, Chronic Diarrhea, Colon Polyp, GERD Genitourinary History: Reports: Renal Calculus, Retention, Urinary, Other (See Below) Other Genitourinary History: bladder suspension, uterine ablation September 2018 [employer] History: Reports: Endometrial Ablation, Musculoskeletal History: Reports: Arthritis Neurological History: Reports: Concussion, Migraines Psychiatric History: Reports: ADHD, Anxiety, Depression, PTSD Endocrine/Metabolic History: Reports: Hypothyroidism, Obesity/BMI 30+ Hematologic History: Reports: Anemia, B12 Deficiency, Blood Transfusion(s), Folic Acid, Iron Deficiency Oncologic (Cancer) History: Reports: Other (See Below) Dermatologic History: Reports: Other (See Below) Other Dermatologic History: lykansclerosis - Infectious Disease History Infectious Disease History: Reports: C-Difficile - Past Surgical History HEENT Surgical History: Reports: Other (See Below) Other HEENT Surgeries/Procedures: wisdom tooth extraction GI Surgical History: Reports: Bariatric Procedure, Colonoscopy, EGD, Hernia Repair/Other, Polypectomy, Other (See Below) Other GI Surgeries/Procedures: with mesh Female Surgical History: Reports: Endometrial Ablation, Tubal Ligation Oncologic Surgical History: Reports: Biopsy of Breast Social & Family History - Family History Cardiac: Reports: Other (See Below) Other Cardiac Family History: unknown to pt. "mom has something" Musculoskeletal: Reports: Arthritis Neurological: Reports: Migraines Psychiatric: Reports: Anxiety Endocrine/Metabolic: Reports: Diabetes, Type I, Hypothyroidism Oncologic: Reports: Prostate - Tobacco Use Smoking Status *Q: Current Every Day Smoker Years of Tobacco use: 35 Packs/Tins Daily: 1 - Caffeine Use Caffeine Use: Reports: Coffee - Recreational Drug Use Recreational Drug Use: Yes Drug Use in Last 12 Months: Yes Recreational Drug Type: Reports: Marijuana/Hashish Recreational Drug Use Frequency: Daily ED ROS GENERAL - Review of Systems Review Of Systems: Comprehensive ROS is negative, except as noted in HPI. ED EXAM, GI/ABD - Physical Exam Exam: See Below Text/Narrative:: This is an adult female who is an extensive historian interviewed in room 6. Exam Limited By: No Limitations General Appearance: Mild Distress Head: Atraumatic Respiratory/Chest: Lungs Clear Cardiovascular: Regular Rate, Rhythm GI/Abdominal Exam: Normal Bowel Sounds, Soft, No Distention, Tender (Minimal discomfort along the inferior costal margins.). No: Guarding, Rigid, Rebound Extremities: Normal Inspection Neurological: Alert Course - Vital Signs Last Recorded V/S: Last Vital Signs Temp 36.6 C 05/16/20 23:36 Pulse 72 05/17/20 01:04 Resp 15 05/17/20 01:04 BP 97/55 L 05/17/20 01:04 Pulse Ox 97 05/17/20 01:04 - Orders/Labs/Meds Orders: Active Orders 24 hr Category Date Time Status Abdomen 1V Upright [CR] Stat Exams 05/17/20 00:07 Taken Labs: Laboratory Tests 05/17/20 05/17/20 Range/Units 00:07 00:29 WBC 7.0 (4.5-11.0) K/uL RBC 3.87 (3.30-5.50) M/uL Hgb 12.0 D (12.0-15.0) g/dL Hct 37.4 (36.0-48.0) % MCV 97 (80-98) fL MCH 31 (27-31) pg MCHC 32 (32-36) % Plt Count 255 (150-400) K/uL Neut % (Auto) 47 (36-66) % Lymph % (Auto) 41 (24-44) % [place] % (Auto) 8 H (2-6) % Eos % (Auto) 4 (2-4) % Baso % (Auto) 0 (0-1) % Sodium 141 (140-148) mmol/L Potassium 4.1 (3.6-5.2) mmol/L Chloride 104 (100-108) mmol/L Carbon Dioxide 29 (21-32) mmol/L Anion Gap 8.5 (5.0-14.0) mmol/L BUN 11 (7-18) mg/dL Creatinine 0.5 L (0.6-1.0) mg/dL Est Cr Clr Drug Dosing 139.63 mL/min Estimated GFR (MDRD) > 60 (>60) Glucose 85 (74-106) mg/dL Calcium 8.7 (8.5-10.1) mg/dL Total Bilirubin 0.2 D (0.2-1.0) mg/dL AST 18 (15-37) U/L ALT 26 D (12-78) U/L Alkaline Phosphatase 61 (46-116) U/L C-Reactive Protein 0.32 H (0.0-0.3) mg/dL Total Protein 6.6 (6.4-8.2) g/dL Albumin 3.4 (3.4-5.0) g/dL Globulin 3.2 (2.3-3.5) g/dL Albumin/Globulin Ratio 1.1 L (1.2-2.2) - Re-Assessments/Exams Free Text/Narrative Re-Assessment/Exam: 05/17/20 03:02 X-ray of abdomen, upright view, ordered and reviewed by me shows no free air or obstructive pattern. There are scattered areas of stool. I returned to review that and lab results which are unremarkable. I recommend yogurt with probiotics. I do not see anything alarming requiring additional imaging or admission. She should follow-up with her surgical team in the clinic as scheduled. Departure - Departure Time of Disposition: :09 Disposition: Home, Self-Care 01 Clinical Impression: Abdominal pain - Discharge Information Instructions: Abdominal Pain, Adult Referrals: Kendall Ortiz MD [Primary Care Provider] - Forms: ED Department Discharge Additional Instructions: Continue current cares and medications. I recommend using yogurt and probiotics for your current abdominal symptoms. There is no evidence of blockage in the intestines today. Recheck with clinic next week if symptoms have not improved. Return to ER if feeling worse in any way. Sepsis Event Note (ED) - Evaluation Sepsis Screening Result: No Definite Risk - Focused Exam Vital Signs: Vital Signs Temp Pulse Resp BP Pulse Ox 05/17/20 01:04 72 15 97/55 L 97 05/17/20 00:00 75 17 106/66 96 05/16/20 23:36 36.6 C 85 16 112/55 L 96 05/16/20 23:22 36.6 C 85 16 112/55 L 96 - My Orders Last 24 Hours: My Active Orders 05/17/20 00:07 Abdomen 1V Upright [CR] Stat - Assessment/Plan Last 24 Hours: My Active Orders 05/17/20 00:07 Abdomen 1V Upright [CR] Stat
--- NOTE | 2020-05-17 09:27 | CR ---
Abdomen 1V Upright CLINICAL HISTORY: Abdominal pain FINDINGS: There are scattered air-filled loops of small bowel in a nonspecific pattern. There is moderate fecal retention in the right transverse colon. Patient has had previous abdominal surgery. This is likely a ventral hernia repair. Patient has had previous bariatric surgery. IMPRESSION: Nonacute intestinal gas pattern Previous bariatric surgery and ventral hernia repair Moderate fecal retention in the right and transverse colon
== END 2020-05-17 01:22 | disposition home or self-care (01) ==
LOC: JP.ED 23:11
DX: R10.31 Right lower quadrant pain (principal); F41.9 Anxiety disorder, unspecified; F32.9 Major depressive disorder, single episode, unspecified; E66.9 Obesity, unspecified; F17.210 Nicotine dependence, cigarettes, uncomplicated; Z68.21 Body mass index [BMI] 21.0-21.9, adult; Z88.1 Allergy status to other antibiotic agents; Z88.0 Allergy status to penicillin; Z88.2 Allergy status to sulfonamides; Z79.899 Other long term (current) drug therapy
CPT/HCPCS: 36415; 74018; 74018-26; 80053; 85025; 86140; 99284-25

== ENCOUNTER 2020-06-06 12:01 | Inpatient (IN) | payer MEDICAID ==
[~2020-06-06 12:01] MED LIST changes: +Acetaminophen 500 MG Tab PO ONE; +Bupivacaine 0.5% 50 ML MDV ONE; +Celecoxib 200 MG Cap PO ONE; +Lidocaine 1% with EPINEPHrine 1:100,000 50 ML MDV ONE; +Meropenem 500 MG SDV ONE; +Midazolam 1 MG/ML 2 ML SDV ONE; +Propofol 200 MG/20 ML SDV ONE; -Ropivacaine 58 ML, Dexamethasone 8 MG, EPINEPHrine 0.4 MG, Sodium Chloride 0.9% 19.6 ML NERVRT SCH; +fentaNYL 100 MCG/2 ML SDV ONE
[2020-06-06] MEDS ORDERED: Lactated Ringers 1,000 ML IV SCH (12:15)
[2020-06-06] MEDS ORDERED: Rocuronium 50 MG/5 ML Vial ONE (12:17)
[2020-06-06] MEDS ORDERED: Dexamethasone 4 MG/ML SDV ONE (12:17)
[2020-06-06] MEDS ORDERED: Succinylcholine 200 MG/10 ML MDV ONE (12:17)
[2020-06-06] MEDS ORDERED: Neostigmine Methylsulfate 1 MG/ML 5 ML Syringe ONE (12:17)
[2020-06-06] MEDS ORDERED: Ondansetron 4 MG/2 ML SDV ONE (12:17)
[2020-06-06] MEDS ORDERED: Glycopyrrolate 0.2 MG/ML 5 ML MDV ONE (12:17)
[2020-06-06] MEDS ORDERED: fentaNYL 250 MCG/5 ML SDV ONE (12:17)
[2020-06-06] MEDS ORDERED: Lactated Ringers 1,000 ML ONE ×2 (12:43→14:31)
[2020-06-06] MEDS ORDERED: diphenhydrAMINE 25 MG Cap PO PRN (12:50)
[2020-06-06] MEDS ORDERED: diphenhydrAMINE 50 MG/ML SDV IVPUSH PRN ×2 (12:50→17:00)
[2020-06-06] MEDS ORDERED: Naloxone 0.4 MG/ML SDV IVPUSH PRN (12:50)
[2020-06-06] MEDS ORDERED: Ondansetron 4 MG/2 ML SDV IVPUSH PRN ×2 (12:50→17:00)
[2020-06-06] MEDS ORDERED: Meropenem 500 MG in Sodium Chloride 0.9% 50 ML IV ONE (13:00)
[2020-06-06] MEDS ORDERED: Magnesium Sulfate/Water 2 GM/50 ML BAG IV SCH (13:00)
[2020-06-06] MEDS ORDERED: Ketamine 50 MG in Sodium Chloride 0.9% 49.5 ML IV SCH (13:00)
[2020-06-06] MEDS ORDERED: Ropivacaine 32 ML, dexAMETHasone 8 MG, EPINEPHrine 0.4 MG, Sodium Chloride 0.9% 45.6 ML NERVRT SCH ×4 (13:00)
[2020-06-06] MEDS ORDERED: Ketamine 500 MG/5 ML MDV IV SCH (13:00)
[2020-06-06] MEDS ORDERED: Naloxone 0.4 MG/ML SDV IV PRN (13:00)
[2020-06-06] MEDS ORDERED: Dextrose 5%-Lactated Ringers 1,000 ML IV SCH (14:30)
[2020-06-06] MEDS ORDERED: fentaNYL 100 MCG/2 ML SDV ONE (15:26)
[2020-06-06] MEDS: HYDROmorphone/Normal Saline 15 MG/30 ML PCA IV PRN (16:03)
[2020-06-06] MEDS ORDERED: Pantoprazole 40 MG Vial IVPUSH SCH (17:00)
[2020-06-06] MEDS ORDERED: hydrOXYzine HCL 100 MG/2 ML SDV IM PRN (17:00)
[2020-06-06] MEDS ORDERED: Metoclopramide 10 MG/2 ML SDV IVPUSH PRN (17:00)
[2020-06-06] MEDS ORDERED: Acetaminophen 500 MG Tab PO PRN (17:00)
[2020-06-06] MEDS ORDERED: Labetalol 20 MG/4 ML Syringe IVPUSH PRN (17:00)
[2020-06-06] MEDS ORDERED: Albuterol/Ipratropium 3.0-0.5 MG/3 ML Neb Soln INH PRN (17:00)
[2020-06-06] MEDS ORDERED: Calcium Gluconate 10% 1 GM/10 ML SDV IVPUSH PRN (17:00)
[2020-06-06] MEDS: MVI, Adult with Vitamin K 10 ML, Thiamine 200 MG, Chromium/Copper/Mang/Selen/Zn 1 ML in... IV SCH ×4 (17:14)
[2020-06-06] MEDS: Cyclobenzaprine 10 MG Tab PO PRN (18:12)
[2020-06-06] MEDS: Meropenem 500 MG in Sodium Chloride 0.9% 50 ML IV SCH (19:42)
[2020-06-06] MEDS: Acetaminophen 500 MG Tab PO SCH (19:42)
[2020-06-06] MEDS: Heparin Sodium 5,000 Units/ML Vial SUBCUT SCH (21:05)
[2020-06-06] MEDS: busPIRone 5 MG Tab PO SCH (21:06)
[2020-06-06] MEDS: Dextrose 5%-Lactated Ringers 1,000 ML IV SCH (23:18)
[2020-06-07] MEDS: Meropenem 500 MG in Sodium Chloride 0.9% 50 ML IV SCH ×3 (02:59→13:30)
[2020-06-07] MEDS ORDERED: Iopamidol 612 MG/ML 50 ML SDV PO STA (03:09)
[2020-06-07] MEDS: Acetaminophen 500 MG Tab PO SCH ×3 (06:13→19:27)
[2020-06-07] MEDS: Dextrose 5%-Lactated Ringers 1,000 ML IV SCH (06:50)
[2020-06-07] MEDS ORDERED: Ondansetron 4 MG Tab.DIS PO PRN (07:32)
[2020-06-07] MEDS ORDERED: Cetirizine 10 MG Tab PO PRN (07:34)
[2020-06-07] MEDS ORDERED: Dextrose 5%-Lactated Ringers 1,000 ML IV SCH (07:45)
[2020-06-07] MEDS: Bisacodyl 5 MG Tab PO SCH ×2 (08:39→20:41)
[2020-06-07] MEDS: Amphetamine/Dextroamphetamine Salts 10 MG Tab PO SCH ×2 (08:39→13:07)
[2020-06-07] MEDS: busPIRone 5 MG Tab PO SCH ×3 (08:39→20:41)
[2020-06-07] MEDS: Celecoxib 200 MG Cap PO SCH ×2 (08:39→20:41)
[2020-06-07] MEDS: Heparin Sodium 5,000 Units/ML Vial SUBCUT SCH ×2 (08:39→20:41)
--- NOTE | 2020-06-07 08:44 | PN ---
DATE OF SERVICE: 06/07/2020 SUBJECTIVE: Delfina is postoperative day #1. Pain is controlled with the PATROL CAPTAIN. She has been up, ambulating. Upper GI this morning looked good. Vital signs have been stable. Oral intake 150 and urine output via Jackson catheter is 1185. TAMMY drain put out 80 mL of a light red drainage. REVIEW OF SYSTEMS: Remainder of review of systems negative for any pertinent positives and negatives. OBJECTIVE: GENERAL: Delfina Baer is a pleasant 44-year-old female. She is alert and orientated. VITAL SIGNS: TPR at 07:19 is 96.7; 78; 16; blood pressure 117/66. HEENT: Negative. NECK: Supple. HEART: Regular rate and rhythm. LUNGS: Clear. ABDOMEN: Dressings dry and intact. Abdominal binder on. Jackson catheter is intact, draining a clear sherita urine as above. EXTREMITIES: Without peripheral edema. ASSESSMENT: Exploratory laparotomy with: 1. Small bowel strictureplasty. 2. Excision of hemorrhagic mass on surface of proximal Natalie limb. 3. Excision of small cyst nodule over the jejunojejunostomy. 4. Excision of probable endometriosis sigmoid colon and appendix epiploica. 5. Wedge excision of area of probable endometriosis. 6. Total abdominal hysterectomy, bilateral salpingo-oophorectomy. 7. Transabdominal colpopexy. 8. Placement of Interceed mesh. POSTOPERATIVE DIAGNOSES: 1. Partial small bowel obstruction secondary to stricture at the jejunojejunostomy. 2. Extensive prolapse with rectocele. 3. Hemorrhagic peritoneal implant 5.5 cm on surface of proximal Natalie limb. 4. Cystic peritoneal 2 cm implant of part of the jejunojejunostomy stricture. 5. Probable endometriosis involving appendix epiploica, sigmoid colon 12 cm. 6. Probable endometriosis on surface of rectum. 7. Date of surgery: 06/06/2020. Surgeon: Gus Ugalde MD. PLAN: 1. Step 2 gastric bypass diet. 2. Decrease IV to 100 mL per hour. 3. Continue PATROL CAPTAIN for pain control. 4. Discontinue Jackson catheter. 5. Vistaril 50 mg at bedtime p.o. scheduled. 6. Zyrtec 10 mg b.i.d. p.r.n. itching. 7. Dulcolax 10 tablets p.o. b.i.d. 8. Continue use of incentive spirometer and ambulation. 9. We will evaluate p.r.n. or in a.m. Bety Norman PA-C /[id number]
--- NOTE | 2020-06-07 09:39 | CR ---
UGI Limited HISTORY: Postbariatric surgery FINDINGS: Patient swallowed water-soluble contrast. Upright views of the abdomen show no evidence of extravasation or obstruction. There is a surgical drain in the right lower quadrant. 2 are delayed image shows contrast in the right colon IMPRESSION: Status post bariatric surgery No extravasation or obstruction seen
[2020-06-07] MEDS: HYDROmorphone/Normal Saline 15 MG/30 ML PCA IV PRN (10:22)
[2020-06-07] MEDS ORDERED: Pantoprazole 40 MG Tab.CR PO SCH (16:00)
[2020-06-07] MEDS: Cyclobenzaprine 10 MG Tab PO PRN (16:05)
[2020-06-07] MEDS: MVI, Adult with Vitamin K 10 ML, Thiamine 200 MG, Chromium/Copper/Mang/Selen/Zn 1 ML in... IV SCH ×4 (16:05)
[2020-06-07] MEDS: HYDROmorphone 2 MG Tab PO PRN (19:27)
[2020-06-07] MEDS ORDERED: Metoclopramide 10 MG Tab PO PRN (19:31)
[2020-06-07] MEDS ORDERED: hydrOXYzine HCl 25 MG Tab PO SCH (21:00)
[2020-06-08] MEDS: HYDROmorphone 2 MG Tab PO PRN ×2 (02:12→07:17)
[2020-06-08] MEDS: Acetaminophen 500 MG Tab PO SCH (05:27)
[2020-06-08] MEDS: Amphetamine/Dextroamphetamine Salts 10 MG Tab PO SCH (07:26)
[2020-06-08] MEDS: Celecoxib 200 MG Cap PO SCH (08:15)
[2020-06-08] MEDS: busPIRone 5 MG Tab PO SCH (08:15)
[2020-06-08] MEDS: Bisacodyl 5 MG Tab PO SCH (08:15)
[2020-06-08] MEDS: Heparin Sodium 5,000 Units/ML Vial SUBCUT SCH (08:16)
[2020-06-08] MEDS ORDERED: Cyanocobalamin (Vitamin B12) 1,000 MCG/ML SDV IM ONE (09:00)
--- NOTE | 2020-06-08 12:20 | DISCH ---
ADMISSION DIAGNOSES: 1. Partial small bowel obstruction, status post Natalie-en-Y gastric bypass surgery, unspecified surgical malabsorption. 2. B12 deficiency. 3. Pelvic pain. DISCHARGE DIAGNOSES: Exploratory laparotomy with: 1. Small bowel stricturoplasty. 2. Excision of hemorrhagic mass on surface of proximal Natalie limb. 3. Excision of small cyst nodule over the jejunojejunostomy. 4. Excision of probable endometriosis of sigmoid colon and appendix epiploica. 5. Wedge excision of area of probable endometriosis. 6. Total abdominal hysterectomy with bilateral salpingo-oophorectomy. 7. Transabdominal colpopexy. 8. Placement of Interceed mesh. POSTOPERATIVE DIAGNOSES: 1. Partial small bowel obstruction secondary to stricture at the jejunojejunostomy. 2. Extensive prolapse with rectocele. 3. Hemorrhagic peritoneal implant 5.5 cm on surface of proximal Natalie limb. 4. Cystic peritoneal 2 cm implant of part of the jejunojejunostomy stricture. 5. Probable endometriosis involving appendix epiploica, sigmoid colon 12 cm. 6. Probable endometriosis on surface of rectum. Date of surgery 06/06/2020. Surgeon: Gus Ugalde MD. HISTORY: Delfina Baer is a pleasant 44-year-old female with increasing abdominal and pelvic pain. After preoperative evaluation and discussion of possible risks and possible complications, she wished to proceed with surgical procedure. HOSPITAL COURSE: Delfina had her surgery on 06/06/2020. She had no operative complications. On postoperative day 1, she was started on a step 2 gastric bypass diet after her upper GI x- ray was normal. Her IV was decreased. COMPOUNDER was discontinued because her IV infiltrated. Her oral intake was adequate. She was changed to oral Dilaudid. On postoperative day 2, Delfina requested to go home. Her oral intake and output were adequate. Pain was controlled with oral Dilaudid. She is passing flatus and felt that she would be fine to go home and to take some MiraLAX and have a bowel movement rather than wait in the hospital. REVIEW OF SYSTEMS: Remainder of review of systems negative for any pertinent positives and negatives. OBJECTIVE: GENERAL: Delfina Baer is a pleasant 44-year-old female. Height is 5 feet 7 inches, weight is 140 pounds. VITAL SIGNS: TPR is 98.6, 69, and 16. Blood pressure 114/65. HEENT: Negative. NECK: Supple. HEART: Regular rate and rhythm. LUNGS: Clear. ABDOMEN: TAMMY drain will be removed prior to discharge. 4x4s will be placed over that. Aquacel dressing is on. [place] intact. This Aquacel will be removed and replaced prior to discharge. Abdominal binder is on. EXTREMITIES: Without peripheral edema. DISPOSITION: Discharged to home. CONDITION: Stable and improving. FOLLOWUP: Appointment with Bety Norman PA-C, at [facility] on 06/25/2020 at 9:15 a.m. HOME MEDICATIONS: 1. Celebrex 200 mg oral b.i.d., #28. 2. Dilaudid 2 mg oral q.4 hours p.r.n. pain, #42. 3. MiraLAX 119 g orally 1 dose today, repeat tomorrow. 4. Tylenol Extra Strength 1000 mg q.8 hours p.r.n. pain. She is to resume her home medications. Calcium citrate 1 twice a day, vitamin D3 at 5000 international units oral daily, clotrimazole 1 applicator topical as directed, vitamin B12 at 2500 mcg sublingual, Flexeril 10 mg every 8 hours p.r.n. muscle spasms, Adderall 20 mg twice daily, Colace 100 mg twice daily, enema as needed once daily, Flonase nasal spray as needed in each nostril, magnesium oxide 400 mg daily, Reglan 10 mg oral 4 times a day p.r.n. nausea, multivitamin b.i.d., senna-S 2 tablets twice daily, vitamin B once daily, vitamin B complex once daily, Trintellix 10 mg oral twice daily, zinc 50 mg oral daily, Dulcolax tablets 10 mg oral twice daily until you have a bowel movement, Buspar 5 mg oral 3 times a day, hydroxyzine 50 mg at bedtime, and tizanidine 2 mg 3 times daily. Discontinue tramadol if you have any at home. DIET: Step 2 gastric bypass diet, advance to step 3 after bowel movement. Drink 8 to 10 glasses of water a day. ACTIVITY: No lifting over 10 pounds for 6 weeks. Other activity, walk inside your home 6 times daily. DRIVING: Do not drive for 1 week or while on pain medication. SHOWER/BATHING: May shower. DISCHARGE INSTRUCTIONS: Notify provider if fever, increased pain, nausea, or vomiting. Keep site clean and dry. Wear abdominal binder. Take Aquacel dressing off on Wednesday06/11/2020. Use incentive spirometer 10 times every hour while awake.
--- NOTE | 2020-06-14 15:31 | OR ---
DATE OF PROCEDURE: 06/06/2020 SURGEON: Gus Ugalde MD PREOPERATIVE DIAGNOSES: 1. Partial small-bowel obstruction. 2. Uterine prolapse with a significant associated rectocele. POSTOPERATIVE DIAGNOSES: 1. Partial small-bowel obstruction secondary to a stricture at the jejunojejunostomy. 2. Uterine prolapse with dominant presentation of a rectocele. 3. Hemorrhagic peritoneal implant (5.5 cm) on the surface of the proximal small bowel Natalie limb. 4. Cystic peritoneal implant (2 mm) at the point of the jejunojejunostomy stricture. 5. Probable endometriosis involving an extensive area of appendix epiploica, sigmoid colon (12 cm). 6. Probable endometriosis on the surface of the rectum. OPERATIVE PROCEDURES: Exploratory laparotomy with: 1. Small bowel stricturoplasty (01071). 2. Excision of a hemorrhagic mass on the surface of the small bowel [place] limb (71192). 3. Excision of a small cystic peritoneal implant on the surface of the jejunojejunostomy (96221). 4. Excision of probable endometriosis involving the appendix epiploica of the sigmoid colon (08387). 5. Wedge excision of an area of endometriosis involving the rectum (52543). 6. Total abdominal hysterectomy with bilateral salpingo-oophorectomy ( 27666). 7. Transabdominal colpopexy (49030). 8. Placement of Interceed mesh to limit recurrent adhesion formation between the pelvic and abdominal wall and underlying viscera (03196). ANESTHESIA: General. DRUG PURCHASER: Bety Norman PA-C INDICATION FOR PROCEDURE: The patient presents with a picture of a partial small-bowel obstruction, status post previous Natalie-en-Y gastric bypass. She also has a significant rectocele associated with some degree of uterine prolapse. The plan is to proceed with exploratory laparotomy with correction of the small-bowel obstruction with and without small- bowel resection and then proceed with a total abdominal hysterectomy with concurrent transabdominal colpopexy . We will leave one of the old in place unless there is an indication for bilateral salpingo-oophorectomy. Potential risks of the procedure, including bleeding, infection, injury to underlying viscera, problems with recurrence of small-bowel obstruction or recurrence of the problems with the vaginal prolapse issues, were gone over, and bilateral salpingo-oophorectomy was undertaken, and the need for possible hormone replacement, were all reviewed with the patient, and she wishes to proceed. DETAILS OF THE PROCEDURE: The patient was taken to the operating room and placed in a supine position. After general endotracheal anesthesia was induced, a Jackson catheter was inserted and the abdomen prepped and draped. A midline incision from the umbilicus downwards towards the pubis was then made and carried down through the skin, subcutaneous tissue, fascia, and peritoneum Upon entering the peritoneal cavity, the patient was noted to have some slightly brown-tinged peritoneal fluid primarily in the pelvis, which appeared to be associated with a fairly widespread endometriosis with there being multiple surfaces as outlined above, stained brown, and associated with some old blood present. Initially, the small bowel was run. The patient was noted to have a stricture at the point where the biliopancreatic limb entered the jejunojejunostomy. This was freed up by means of a stricturoplasty with division of some adhesions around that and then opening the anastomosis and firing a RADHA momin load between the area of the stricture and then closing this all with a purple load. During the course of this dissection, a roughly 1 to 2 mm cystic peritoneal lesion was encountered and was excised and sent as a separate specimen. At this point, the area of probable endometriosis was dealt with. There was a 12 cm segment of appendix epiploica that was involved with what appeared to be the endometriosis, and this was excised by means of a stapler, and then, the rectum had an area of adherence above the implant. This was excised by means of a partial excision of the rectum by means of a RADHA stapler as well. The staple line appeared to be intact. One additional area of peritoneal implant which appeared to be somewhat different than the others was in the mid portion of the Natalie limb of the small bowel. This was a 5.5 cm hemorrhagic-appearing peritoneal implant, and this was also then excised and sent as a separate specimen. Attention was now taken to the hysterectomy. Given the findings in the pelvis where the salpingo-oophorectomy was to be undertaken, the infundibulopelvic ligaments round ligaments were divided with RADHA shila on each side. The peritoneal reflection of the bladder under the uterus was then divided and the bladder dissected downwards onto the upper vagina. The cardinal ligaments were then taken with shila, as were then the uterosacral ligaments, and the vaginal cuff then closed off by means of a running 0 Vicryl stitch after division of the vaginal cuff. The pelvis was then irrigated with antibiotic- containing saline solution. The transbronchial colpopexy was then initiated with selecting a strip of polypropylene mesh measuring about 2 cm in width. This was fixed into the posterior aspect of the vaginal cuff with some 2-0 Prolene stitches and then to the very apex of the vaginal cuff with a TA 30 stapler. The mesh was then tunneled between the point just above the vaginal cuff and the retroperitoneum in front of the rectum up to the sacral promontory and the excess mesh then excised. The peritoneum over these 2 areas that had been opened up for tunneling of the mesh was then closed with some 3-0 Vicryl stitch. At this point, no further problems were noted. A Leroy-Agee drain was taken through the left side of the abdomen and taken down the pelvis and was irrigated once again with antibiotic-containing saline solution, and the Interceed mesh was then placed underneath the incision to limit recurrent adhesion formation between the pelvic and abdominal wall and the underlying viscera. The posterior peritoneum was then approximated with a #1 Vicryl stitch, as was the anterior rectus muscle fascia, and the subcutaneous tissue approximated with some 3-0 Vicryl stitch and the skin with shila. A dressing was applied. The patient was taken to the recovery room in satisfactory condition. Physician glass ribbon machine operator assistant Bety Norman played an essential role in assisting in this case, helping to position the patient and retract structures as needed as well as suturing and cutting sutures when indicated. Her presence improved patient safety and decreased operative time. Gus Ugalde MD /[id number]
== END 2020-06-08 09:55 | disposition home or self-care (01) | DRG 330 ==
LOC: JP.SDSSCHI 12:01 → JP.SDS 12:01 → JP.MS 15:45 → EDSTATUS 19:15
PROVIDERS: ADMIT Surgery; ATTEND Surgery
PROC: 0DQ80ZZ Repair Small Intestine, Open Approach (ICD-10-PCS; principal; 2020-06-06)
PROC: 0DBA0ZZ Excision of Jejunum, Open Approach (ICD-10-PCS; 2020-06-06)
PROC: 0DBJ0ZZ Excision of Appendix, Open Approach (ICD-10-PCS; 2020-06-06)
PROC: 0DBN0ZZ Excision of Sigmoid Colon, Open Approach (ICD-10-PCS; 2020-06-06)
PROC: 0UT90ZZ Resection of Uterus, Open Approach (ICD-10-PCS; 2020-06-06)
PROC: 0UT70ZZ Resection of Bilateral Fallopian Tubes, Open Approach (ICD-10-PCS; 2020-06-06)
PROC: 0USG0ZZ Reposition Vagina, Open Approach (ICD-10-PCS; 2020-06-06)
PROC: 3E0M05Z Introduction of Adhesion Barrier into Peritoneal Cavity, Open Approach (ICD-10-PCS; 2020-06-06)
DX: K95.89 Other complications of other bariatric procedure (principal); K91.2 Postsurgical malabsorption, not elsewhere classified; K56.51 Intestinal adhesions [bands], with partial obstruction; K65.4 Sclerosing mesenteritis; Y84.8 Other medical procedures as the cause of abnormal reaction of the patient, or of later complication, without mention of misadventure at the time of the procedure; E53.8 Deficiency of other specified B group vitamins; K62.3 Rectal prolapse; N80.5 Endometriosis of intestine; Z98.84 Bariatric surgery status; Z68.21 Body mass index [BMI] 21.0-21.9, adult; F41.9 Anxiety disorder, unspecified; J45.909 Unspecified asthma, uncomplicated; F32.9 Major depressive disorder, single episode, unspecified; K21.9 Gastro-esophageal reflux disease without esophagitis; R16.0 Hepatomegaly, not elsewhere classified; E78.5 Hyperlipidemia, unspecified; E66.01 Morbid (severe) obesity due to excess calories; M17.0 Bilateral primary osteoarthritis of knee; I83.93 Asymptomatic varicose veins of bilateral lower extremities; Z98.51 Tubal ligation status; F17.210 Nicotine dependence, cigarettes, uncomplicated; K59.00 Constipation, unspecified; E53.9 Vitamin B deficiency, unspecified; E50.9 Vitamin A deficiency, unspecified; E55.9 Vitamin D deficiency, unspecified; E60 Dietary zinc deficiency
CPT/HCPCS: 36415; 74240; 74240-26; 80053; 81025; 82607; 82728; 82746; 83735; 84100; 85027; 88305; 88341; 88342; 94762; A9270-GY; C1713; C1781; C9113; J0171; J0330; J1100; J1170; J1644; J2020; J2185; J2250; J2405; J2704; J2710; J2765; J2795; J3010; J3410; J3411; J3420; J3475; J3490; J7050; J7120; J7121; Q9967; U0002